=== PATIENT | male | born 1955 | race Caucasian/White ===

== ENCOUNTER 2022-06-15 14:13 | Emergency (ER) | payer OTHER, SELFPAY ==
[2022-06-15 14:55] VITALS: BP 123/70; PULSE 92; RESP 16; TEMP 36.6; O2SAT 99; BMI 23.6
--- NOTE | 2022-06-15 15:10 | CRLHL7_ITS ---
For Patients: As a result of the Century Cures Act, medical imaging exams and procedure reports are released immediately into your electronic medical record. You may view this report before your referring provider. If you have questions, please contact your health care provider. INDICATION: Shortness of breath. TECHNIQUE: CT chest PE was acquired with 95 cc Isovue 370 IV contrast. COMPARISON: CT chest 03/02/2016. FINDINGS: Heart and vasculature: Contrast opacification of the pulmonary arterial tree is adequate. No sign of pulmonary embolism. Mild left atrial enlargement. Mild aneurysmal dilatation of the ascending aorta measuring 4.1 cm. The main pulmonary artery is normal in caliber.Coronary artery and thoracic aorta atherosclerotic calcification. Lungs and pleura: Bilateral paraseptal emphysema. Spiculated 2.0 x 1.8 cm nodule within the anterior right upper lobe abutting the anterior pleural and mediastinal margins. There are scattered linear and spiculated nodular opacities throughout the right lower lobe. Region of scarring in the left lower lobe posterior basal segment. No pleural effusion or pneumothorax. Lymph nodes/mediastinum: No mediastinal, hilar, or axillary adenopathy. Chest wall: No masses. Upper abdomen: No acute or significant findings. Bones: Unremarkable for age. IMPRESSION: No pulmonary embolism. Multiple spiculated nodular opacities, the largest measuring 2 cm in the anterior right upper lobe abutting the anterior mediastinal and pleural margins. These may represent sequela of a prior infectious or inflammatory process; however, malignancy cannot be excluded as they are new since 03/02/2016. Recommend follow-up chest CT in 3 months or PET-CT for further evaluation. Please note that all CT scans at this facility use dose modulation, iterative reconstruction, and/or weight-based dosing when appropriate to reduce radiation dose to as low as reasonably achievable. Dictated by Mihir Scruggs MD @ 06/15/2022 5:23:37 PM (Electronically Signed)
--- NOTE | 2022-06-15 15:10 | CRLHL7_ITS ---
For Patients: As a result of the Century Cures Act, medical imaging exams and procedure reports are released immediately into your electronic medical record. You may view this report before your referring provider. If you have questions, please contact your health care provider. INDICATION: Leg swelling. TECHNIQUE: Ultrasound venous duplex bilateral lower extremity. Compression venous exam was performed using verma-scale, color Doppler, and spectral Doppler analysis. COMPARISON: None. FINDINGS: Deep veins: Sonographic imaging demonstrates the bilateral common femoral, deep femoral, superficial femoral, popliteal, and peroneal veins to be fully compressible with normal color Doppler blood flow. The right posterior tibial vein is incompressible with of definitive flow, suggestive of occlusive thrombus. There is partial compressibility of the left inferior posterior tibial vein, consistent with partially occlusive thrombus. Superficial veins: Greater saphenous vein is fully compressible. No popliteal cyst. IMPRESSION: Thrombus within the bilateral posterior tibial veins, occlusive on the right and partially occlusive on the left. Findings discussed with Dr. Gutierrez at 3:02 p.m. PST on 06/15/2022. Dictated by Mihir Scruggs MD @ 06/15/2022 5:03:09 PM (Electronically Signed)
--- NOTE | 2022-06-15 15:13 | ED_ITS ---
HPI - General Adult General Time Seen by Provider: 15:14 Date Seen: 06/15/22 Chief complaint: Shortness of Breath/Dyspnea Stated complaint: Struggling to breathe, possible blood clot Time Seen by Provider: 06/15/22 14:15 Source: patient Mode of arrival: ambulatory Limitations: no limitations History of Present Illness HPI narrative: Patient is a 67 year white male who works at [employer]. He has had shortness of breath and some leg swelling over the last week. He quit smoking about a year ago, he denies any heart failure, chronic lung disease, or bleeding or clotting problems. He reports he has been somewhat short of breath although his O2 sat today is 99%. He has not had any COVID symptoms, fever, cough, chest pain. He has had no skin rashes. No other specific complaints. He feels more short of breath when he is active, but denies chest pain as mention Related Data Home Medications Medication Instructions Recorded Confirmed No Known Home Medications 06/15/22 06/15/22 Allergies Allergy/AdvReac Type Severity Reaction Status Date / Time No Known Drug Allergies Allergy Verified 06/15/22 14:59 Review of Systems Status of ROS: Reports: 10 or more systems reviewed and unremarkable except as noted in History and below PFSH PFS Social History Smoking Status: Former smoker How often do you have a drink containing alcohol: never AUDIT-C Alcohol total score: 0 Non-prescribed substance use: denies use service: No Exam Narrative: Exam Narrative: Objective: The patient is alert orient x3 He is noncyanotic Talks in even unlabored sentences Vital signs unremarkable HEENT shows no scleral icterus mouth clear no facial asymmetry neck is supple Chest is clear no rales or wheezing Heart rhythm regular 2/6 systolic murmur Abdomen benign soft nontender no passing megaly Extremities show just trace edema around his socks were has a Ms. Mid calf and no palpable venous cords negative Homans sign bilaterally Skin is warm and dry in the periphery Const: Vital Signs, click to edit/add: Vital Signs - 24 hr 06/15/22 14:55 06/15/22 17:00 06/15/22 17:30 Temperature 97.8 F Pulse Rate [Pulse Oximeter] 92 79 83 Respiratory Rate 16 18 Blood Pressure [Ri ght Upper Arm] 123/70 95/61 94/59 L Pulse Oximetry 99 98 99 Oxygen Delivery Me thod Room Air Room Air Room Air 06/15/22 16:30 Temperature Pulse Rate [Pulse Oximeter] 81 Respiratory Rate Blood Pressure [Ri ght Upper Arm] 97/61 Pulse Oximetry 97 Oxygen Delivery Me thod Room Air Course Vital Signs Vital signs: Initial Vital Signs Temperature 97.8 F 06/15/22 14:55 Temperature Source Temporal Artery Scan 06/15/22 14:55 Pulse Rate 92 06/15/22 14:55 Respiratory Rate 16 06/15/22 14:55 Blood Pressure 123/70 06/15/22 14:55 Blood Pressure Mean 87 06/15/22 14:55 Pulse Oximetry 99 06/15/22 14:55 Oxygen Delivery Method 06/15/22 14:55 Vital Signs Temperature 97.8 F 06/15/22 14:55 Pulse Rate 92 06/15/22 14:55 Respiratory Rate 16 06/15/22 14:55 Blood Pressure 123/70 06/15/22 14:55 Pulse Oximetry 99 06/15/22 14:55 Oxygen Delivery Method 06/15/22 14:55 Temperature 97.8 F 06/15/22 14:55 Pulse Rate 83 06/15/22 17:30 Respiratory Rate 18 06/15/22 17:30 Blood Pressure 94/59 L 06/15/22 17:30 Pulse Oximetry 99 06/15/22 17:30 Oxygen Delivery Method 06/15/22 17:30 Medical Decision Making MDM Narrative Medical decision making narrative: Patient has had several-day history of increasing shortness of breath, will check a COVID test, laboratory studies, CT scan of the chest to rule out PE, he has had some lower extremity swelling any if will do a Doppler scan of both lower extremities to rule out DVT and possible PE. Rule out acute coronary syndrome with troponin and EKG Addendum: The patient's EKG by my read shows normal sinus rhythm no acute ST T wave changes. CT scan of the chest shows some right-sided spiculated nodules the maybe prior infection verses early malignancy radiology recommended a repeat CT scan in 3 months of the chest. Patient will be notified of this. There is no evidence of pulmonary embolus. Hemodynamics remain good. Laboratory studies show a low normal sodium 133, total billing bilirubin is 3 direct is elevated at 0.6 AST 51 troponin is negative CRP is 3.4, which could be related to his positive COVID test, he is negative for flu and RSV. Lower extremity Doppler scans show bilateral posterior tibial thrombi right greater than left. Patient will be started on Eliquis 10 mg b.i.d. for 10 days and then 5 mg b.i.d. x1 month. He will need follow up with his regular doctor within the next couple of days. Light activity, recommend off work for a few days have written a note to that effect, and elevate the legs. Return to ED sooner pr oblems or concerns. I am wondering if his COVID has led to the clotting process in his legs, or that simply concomitant infection Lab Data Labs: Lab Results 06/15/22 06/15/22 06/15/22 Range/Units 15:10 15:30 15:30 Sodium 133 L (135-149) mmol/L Potassium 4.5 (3.6-5.1) mmol/L Chloride 101 (96-114) mmol/L Carbon Dioxide 25 (20-32) mmol/L BUN 18 (7-30) mg/dL Creatinine 1.2 (0.5-1.5) mg/dL Estimated Creat Clear 58.58 Estimated GFR 67 ml/min Glucose 100 (60-115) mg/dL Calcium 8.8 (8.4-10.6) mg/dL Total Bilirubin 3.0 H (0.1-1.5) mg/dL Direct Bilirubin 0.6 H (0.0-0.5) mg/dL AST 51 H (12-35) U/L ALT 21 (4-50) U/L Alkaline Phosphatase 117 (40-150) U/L Troponin I < 0.01 L (0.01-0.04) ng/mL C-Reactive Protein 3.4 H (0.5-1.0) mg/dL NT-Pro-B Natriuret Pep 454 H (0-125) PG/mL Total Protein 7.2 (6.0-8.3) g/dL Albumin 4.4 (3.3-5.0) g/dL SARS-CoV-2 (PCR) POSITIVE SARS-CoV-2 A (Negative) Influenza Type A (PCR) Negative PCR FLU A (Negative) Influenza Type B (PCR) Negative PCR FLU B (Negative) RSV (PCR) Negative PCR RSV (Negative) Discharge Plan Discharge Clinical Impression: Mild shortness of breath, COVID-19, Indeterminate pulmonary nodules, DVT of lower extremity, bilateral Patient Disposition: Home w/ Parent or Adult Condition: Stable Additional Instructions: Off work for 2-3 days, elevate legs, Eliquis to take as directed, light activity, recheck with primary care in the next 3-5 days. Recheck the pulmonary nodules noted on your CT scan with a repeat CT scan in 3 months, this can be coordinated through her primary care doctor. Return to ED sooner problems concerns difficulty, such as shortness of breath, chest pain or other concern. Activity Level: Light activity Activity Detail: Off work x3 days Discharge Diet: Regular Prescriptions: No Action No Known Home Medications Follow Up/Referrals: Dean Parisi MD [Primary Care Provider] - Stand Alone Forms: [employer] Info Instructions
[2022-06-15] MEDS: ASPIRIN 81 MG TAB.CHEW 324 MG PO (15:36)
[2022-06-15 15:53] LABS: Chloride* 101 mmol/L (96-114)
[2022-06-15 15:54] LABS: Potassium* 4.5 mmol/L (3.6-5.1); Sodium* 133 mmol/L (135-149)
[2022-06-15 15:55] LABS: Albumin* 4.4 g/dL (3.3-5.0)
[2022-06-15 15:56] LABS: Creatinine* 1.2 mg/dL (0.5-1.5); Est. Creatinine Clearance* 58.58; Estimated Glomerular Filt Rate 67 ml/min
[2022-06-15 15:57] LABS: Blood Urea Nitrogen* 18 mg/dL (7-30); Carbon Dioxide* 25 mmol/L (20-32); Glucose* 100 mg/dL (60-115)
[2022-06-15 15:58] LABS: Alanine Aminotransferase* 21 U/L (4-50); Alkaline Phosphatase* 117 U/L (40-150); Aspartate Amino Transferase* 51 U/L (12-35); Bilirubin Direct* 0.6 mg/dL (0.0-0.5); Calcium* 8.8 mg/dL (8.4-10.6); Total Protein* 7.2 g/dL (6.0-8.3)
[2022-06-15 16:00] LABS: C Reactive Protein* 3.4 mg/dL (0.5-1.0)
[2022-06-15 16:06] LABS: NT Pro B Type NatriureticPept* 454 PG/mL (0-125)
[2022-06-15 16:17] LABS: PCR FLU A Negative PCR FLU A (Negative); PCR FLU B Negative PCR FLU B (Negative); PCR RSV Negative PCR RSV (Negative)
[2022-06-15 16:18] LABS: Troponin I* < 0.01 ng/mL (0.01-0.04)
[2022-06-15 16:20] LABS: SARS PCR* POSITIVE SARS-CoV-2 (Negative)
[2022-06-15 16:30] VITALS: BP 97/61; PULSE 81; O2SAT 97
[2022-06-15 17:00] VITALS: BP 95/61; PULSE 79; O2SAT 98
[2022-06-15 17:30] VITALS: BP 94/59; PULSE 83; RESP 18; O2SAT 99
[2022-06-15] MEDS: APIXABAN 5 MG TABLET 10 MG PO (17:48)
--- OUTSIDE RECORDS SUMMARY | 2022-06-16 14:08 | XMS_ITS | Clinical Summary ---
:1955 External Reference #:CL#[id number] Author Organization [facility] [place] [address] Care Team Providers Name Role Phone Unavailable Primary Care Provider Unavailable Allergies Active Allergy Reactions Severity Noted Date Comments Penicillins 07/22/2008 Medications Medication Sig Dispensed Refills Start Date End Date Status CELEBREX 200 MG CAP take 1 capsule 60 6 03/19/2009 Active (200 mg) by oral route 2 times per day as needed VICODIN 5 MG-500 MG take 1-2 tablets 36 2 01/21/2009 Active TABIndications: Neck by oral route at pain, Pain in joint, bed time as needed shoulder region for pain NEURONTIN 300 MG CAP take 1 capsule 30 3 12/24/2008 Active (300 mg) by oral route qhs prn MEDROL (JARAD) 4 MG TABS per pack 1 pack 0 04/10/2009 Active IN A DOSE PACK PERCOCET 5 MG-325 MG take 1 tablet by 24 0 04/10/2009 Active TAB oral route every 6 hours as needed Active Problems Problem Noted Date 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 10/13/2008 Neck pain 06/05/2008 Pain in joint, shoulder region 06/05/2008 Social History Tobacco Use Types Packs/Day Years Used Date Current Some Day Smoker Smokeless Tobacco: Never Used Comments: quit one yr ago Alcohol Use Standard Drinks/Week Comments No 0 (1 standard drink = 0.6 oz pure alcoho l) Sex Assigned at Date Recorded Not on file Obstetrics History Last Filed Vital Signs Vital Sign Reading Time Taken Comments Blood Pressure 127/81 08/03/2019 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 Pulse 68 08/03/2019 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 Temperature 36.4 ??C (97.6 ??F) 08/03/2019 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 Respiratory Rate 18 08/03/2019 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 Oxygen Saturation 97% 08/03/2019 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 Inhaled Oxygen Concentration - - Weight 78.1 kg (172 lb 1.6 oz) 08/03/2019 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 Height 175.3 cm (5' 9) 08/03/2019 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 Body Mass Index 25.41 08/03/2019 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 Plan of Treatment Health Maintenance Due Date Last Done Comments COVID-19 vaccine series (#1) 1955 Tdap 1967 Depression screening for age 12+ 1968 BMI (ht and wt on same day) for age 18+ 1974 Hepatitis C screening for age 18-79 1974 Tetanus booster 1976 Colonoscopy through age 75 2001 Lipids for age 45-75 2001 Zoster (shingles) series for age 50+ (1 of 2) 2006 Pneumococcal series for age 65+ (1 - PCV) 2021 Influenza for age 65+ 04/21/2022 Results Not on filefrom Last 3 Months Insurance Payer Benefit Plan / Subscriber ID Effective Phone Address T ype Group Dates [employer] [id number]-Pre [phone] [address] COMP [address] [place] [address] PREFERRED ONE PREFERRED ONE [id number] 2018-Prese [address] [place] [address]
== END 2022-06-15 18:03 | disposition home or self-care (01) ==
PROVIDERS: Emergency Provider Family Medicine; PCP Family Medicine
DX: U07.1 COVID-19 (principal); I82.403 Acute embolism and thrombosis of unspecified deep veins of lower extremity, bilateral
CPT/HCPCS: 36415; 71260; 80048; 80076; 83880; 84484; 86140; 87502; 87634; 87635; 93005; 93970; 94761; 99284; 99285; A9270; Q9967

== ENCOUNTER 2022-07-10 17:19 | Inpatient (IN) | payer OTHER, MEDICARE, SELFPAY ==
[2022-07-10] VITALS (20 sets, daily range): BP systolic 89–129; BP diastolic 59–71; PULSE 77–109; RESP 16–20; TEMP 36.6–36.8; O2SAT 90–98; BMI 22.9; BMI 22.0
--- NOTE | 2022-07-10 17:59 | CRLHL7_ITS ---
For Patients: As a result of the Century Cures Act, medical imaging exams and procedure reports are released immediately into your electronic medical record. You may view this report before your referring provider. If you have questions, please contact your health care provider. Indication: Shortness of breath, concern for PE and after loss of consciousness Technique: Contrast enhanced CT of the chest, PE protocol, Isovue 370, 95 milliliters IV Please note that all CT scans at this facility use dose modulation, iterative reconstruction, and/or weight-based dosing when appropriate to reduce radiation dose to as low as reasonably achievable. Comparison: June 15, 2022 Findings: Thyroid, neck base, central airways, esophagus unremarkable. No acute abnormality within the upper abdomen. Low-attenuation renal lesions, some of which appear to be cysts some which are too small to characterize. Normal heart size. No pericardial effusion. Normal course and caliber of the thoracic aorta and the pulmonary arteries. No definite acute pulmonary artery filling defects. Evaluation of the segmental and subsegmental pulmonary arteries is limited. Small filling defect within the right middle lobe (series 4, image 115), unchanged from prior CT from June 15, 2022 and likely chronic. No mediastinal or hilar lymphadenopathy. No axillary lymphadenopathy. No chest wall mass. Somewhat spiculated right upper lobe pulmonary nodule (series 4, image 75) measuring approximately 1.9 x 1.8 centimeters. Similar left lower lobe pleural-based pulmonary nodular/opacity (series 4, image 104). Similar left basilar atelectasis. Similar right perihilar bronchiectasis. Similar paraseptal emphysema. Trace left pleural effusion. No pneumothorax. No acute osseous abnormality. Impression: 1. No evidence of acute pulmonary embolism. 2. Chronic filling defect in a right middle lobe subsegmental pulmonary artery, likely sequela of old pulmonary embolism. 3. Redemonstrated spiculated right upper lobe pulmonary nodule. Recommend further evaluation with PET-CT. Please note that all CT scans at this facility use dose modulation, iterative reconstruction, and/or weight-based dosing when appropriate to reduce radiation dose to as low as reasonably achievable. Dictated by Kiran Burris MD @ 07/10/2022 8:00:46 PM (Electronically Signed)
--- NOTE | 2022-07-10 18:02 | ED_ITS ---
HPI - SOB/Dyspnea General Chief Complaint: Shortness of Breath/Dyspnea Stated Complaint: Trouble Breathing Time Seen by Provider: 07/10/22 17:28 History of Present Illness HPI Narrative: This 67-year-old male comes in reporting shortness of breath and jaundice symptoms. He states that he has fallen 4 times over the past few weeks. He was diagnosed with deep venous thrombosis in his lower extremities bilaterally on June 16, about 3 weeks ago. He has been taking Eliquis since then. He has been taking 2 tablets twice a day yet. This was appropriate for the 1st week but then he was to decrease to 1 tablet twice a day. He does not report any pain. States that he has shortness of breath and does appear jaundiced. He arrives with normal vital signs except his heart rate is slightly tachycardic. He does not report any fevers or upper respiratory infection symptoms. Related Data Previous Rx's Medication Instructions Recorded apixaban 5 mg tablet (Eliquis) 5 mg PO BID #60 tabs 06/21/22 Allergies Allergy/AdvReac Type Severity Reaction Status Date / Time No Known Drug Allergies Allergy Verified 07/10/22 17:49 Review of Systems Status of ROS: Reports: 10 or more systems reviewed and unremarkable except as noted in History and below Narrative: Constitutional: No fevers, no weight gain or loss. Eyes: No discharge. No vision changes. HENT: No congestion, no sore throat, no ear pain. Cardiovascular: No chest pain, no palpitations. Respiratory: Shortness of breath as described above. Gastrointestinal: No abdominal pain, no vomiting, no diarrhea. Genitourinary: No dysuria, no hematuria. Musculoskeletal: Normal range of motion. Skin: No rashes, no pruritis. Jaundice appearance. Neurological: No dizziness, weakness, sensory change, speech change. Endo/Heme/Allergies: No bruising or bleeding. No polydipsia. Pysch: no suicidality, no anxiety, no insomnia. All other systems reviewed and are negative. [facility] Social History Smoking Status: Current every day smoker How often do you have a drink containing alcohol: never AUDIT-C Alcohol total score: 0 Non-prescribed substance use: denies use service: No Exam Narrative: Exam Narrative: Constitutional: Well-developed, well-nourished, no acute distress. HEENT: Normocephalic, atraumatic. Neck: Normal range of motion. Nontender. Supple. Heart: Regular. No murmurs. Normal rate. Intact distal pulses. Lungs: No chest discomfort. No wheezes or rales. Bilateral rhonchi. Abdomen: Normal bowel sounds. Nontender. No rebound tenderness. Genitalia: Deferred. Back: No midline tenderness. Normal range of motion. Extremities: Normal range of motion. No injury. Skin: Intact. No rash. Warm. No erythema or pallor. Neurologic: No altered sensation. No weakness. Alert and oriented. Psychiatric: No suicidality. No anxiety or depression. No insomnia. Nursing notes and vitals signs are reviewed. Const: Vital Signs, click to edit/add: Vital Signs - 24 hr 07/10/22 17:49 Temperature 98 F Pulse Rate [Pulse Oximeter] 96 Respiratory Rate 18 Blood Pressure [Ri ght Upper Arm] 129/64 Pulse Oximetry 98 Oxygen Delivery Me thod Room Air Course Vital Signs Vital signs: Initial Vital Signs Temperature 98 F 07/10/22 17:49 Temperature Source Temporal Artery Scan 07/10/22 17:49 Pulse Rate 96 07/10/22 17:49 Respiratory Rate 18 07/10/22 17:49 Blood Pressure 129/64 07/10/22 17:49 Blood Pressure Mean 85 07/10/22 17:49 Blood Pressure Position Supine 07/10/22 17:49 Pulse Oximetry 98 07/10/22 17:49 Oxygen Delivery Method 07/10/22 17:49 Vital Signs Temperature 98 F 07/10/22 17:49 Pulse Rate 96 07/10/22 17:49 Respiratory Rate 18 07/10/22 17:49 Blood Pressure 129/64 07/10/22 17:49 Pulse Oximetry 98 07/10/22 17:49 Oxygen Delivery Method 07/10/22 17:49 Temperature 98 F 07/10/22 17:49 Pulse Rate 96 07/10/22 17:49 Respiratory Rate 18 07/10/22 17:49 Blood Pressure 129/64 07/10/22 17:49 Pulse Oximetry 98 07/10/22 17:49 Oxygen Delivery Method 07/10/22 17:49 MDM - SOB/Dyspnea MDM Narrative Medical decision making narrative: This patient comes in reporting shortness of breath and weakness. He has been taking a double dose of Eliquis for the past 3 weeks. He appears jaundiced. He does not report any pain. An IV was established and labs were drawn. His hemoglobin is markedly low at 4.9. The most recent comparison value was a year ago when it was around 13. His bilirubin is elevated at around 3. A CT scan of the chest with PE protocol is ordered and completed. There is no sign of pulmonary embolism or acute pulmonary disease. This patient needs a blood yang sfusion. Most likely his symptoms and lab results are a consequence of the dosing of Eliquis that he has been taking. I spoke with the hospitalist machine stone polisher, Dr. Steele, who will arrange for his admission and for blood transfusion. Lab Data Labs: Lab Results 07/10/22 07/10/22 07/10/22 Range/Units 18:15 18:15 18:15 WBC 12.74 H (4.50-11.00) K/uL RBC 1.16 L (4.30-5.90) m/uL Hgb 4.9 L* (13.5-17.5) gm/dL Hct 16.0 L (37.0-53.0) % MCV 138 H (80-100) fL MCH 42 H (26-34) pg MCHC 31 L (32-36) gm/dL RDW Coeff of Loyd 23.2 H (11.5-15.5) % Plt Count 185 (140-440) K/uL Neut % (Auto) 63.5 (42.0-72.0) % Lymph % (Auto) 25.4 (20-44) % [place] % (Auto) 4.9 (0.0-11.0) % Eos % (Auto) 3.5 (0.0-7.0) % Baso % (Auto) 0.5 (0.0-3.0) % Neut # (Auto) 8.10 H (1.7-7.0) K/uL Lymph # (Auto) 3.20 H (0.90-2.90) K/uL [place] # (Auto) 0.60 (0.00-0.90) K/UL Eos # (Auto) 0.40 (0.00-0.50) K/uL Baso # (Auto) 0.10 (0.00-0.30) K/uL Abs Immat Gran (auto) 0.30 (0.00-0.30) K/uL Imm/Tot Granulo (auto) 2.2 % INR 1.01 (0.91-1.10) Sodium 137 (135-149) mmol/L Potassium 4.4 (3.6-5.1) mmol/L Chloride 106 (96-114) mmol/L Carbon Dioxide 27 (20-32) mmol/L BUN 24 (7-30) mg/dL Creatinine 1.2 (0.5-1.5) mg/dL Estimated Creat Clear 60.22 Estimated GFR 67 ml/min Glucose 142 H (60-115) mg/dL Calcium 9.1 (8.4-10.6) mg/dL Total Bilirubin 2.8 H (0.1-1.5) mg/dL Direct Bilirubin 0.6 H (0.0-0.5) mg/dL AST 114 H (12-35) U/L ALT 28 (4-50) U/L Alkaline Phosphatase 70 (40-150) U/L NT-Pro-B Natriuret Pep 130 H (0-125) PG/mL Total Protein 6.7 (6.0-8.3) g/dL Albumin 4.1 (3.3-5.0) g/dL SARS-CoV-2 Ag (Rapid) (Negative) POC Troponin I (0.01-0.04) ng/ml 07/10/22 07/10/22 Range/Units 18:15 19:15 WBC (4.50-11.00) K/uL RBC (4.30-5.90) m/uL Hgb (13.5-17.5) gm/dL Hct (37.0-53.0) % MCV (80-100) fL MCH (26-34) pg MCHC (32-36) gm/dL RDW Coeff of Loyd (11.5-15.5) % Plt Count (140-440) K/uL Neut % (Auto) (42.0-72.0) % Lymph % (Auto) (20-44) % [place] % (Auto) (0.0-11.0) % Eos % (Auto) (0.0-7.0) % Baso % (Auto) (0.0-3.0) % Neut # (Auto) (1.7-7.0) K/uL Lymph # (Auto) (0.90-2.90) K/uL [place] # (Auto) (0.00-0.90) K/UL Eos # (Auto) (0.00-0.50) K/uL Baso # (Auto) (0.00-0.30) K/uL Abs Immat Gran (auto) (0.00-0.30) K/uL Imm/Tot Granulo (auto) % INR (0.91-1.10) Sodium (135-149) mmol/L Potassium (3.6-5.1) mmol/L Chloride (96-114) mmol/L Carbon Dioxide (20-32) mmol/L BUN (7-30) mg/dL Creatinine (0.5-1.5) mg/dL Estimated Creat Clear Estimated GFR ml/min Glucose (60-115) mg/dL Calcium (8.4-10.6) mg/dL Total Bilirubin (0.1-1.5) mg/dL Direct Bilirubin (0.0-0.5) mg/dL AST (12-35) U/L ALT (4-50) U/L Alkaline Phosphatase (40-150) U/L NT-Pro-B Natriuret Pep (0-125) PG/mL Total Protein (6.0-8.3) g/dL Albumin (3.3-5.0) g/dL SARS-CoV-2 Ag (Rapid) Negative (Negative) POC Troponin I 0.00 L (0.01-0.04) ng/ml Imaging Data CT scan - chest: Radiologist's impression: 1. No evidence of acute pulmonary embolism. 2. Chronic filling defect in a right middle lobe subsegmental pulmonary artery, likely sequela of old pulmonary embolism. 3. Redemonstrated spiculated right upper lobe pulmonary nodule. Recommend further evaluation with PET-CT. ECG Data Attestation: I personally reviewed and interpreted this ECG as follows: Interpretation: Normal sinus rhythm. Rate is 99 beats per minute. There are no ST or T-wave abnormalities. Discharge Plan Discharge Clinical Impression: Direct hyperbilirubinemia, DVT (deep venous thrombosis), Anemia Patient Disposition: Admitted As Inpatient Condition: Unchanged Prescriptions: No Action Eliquis 5 mg tablet 5 mg PO BID Qty: 60 1RF Follow Up/Referrals: Dean Parisi MD [Primary Care Provider] -
--- OUTSIDE RECORDS SUMMARY | 2022-07-10 18:18 | XMS_ITS | Clinical Summary ---
:1955 External Reference #:[id number] Author Organization [facility] [place] [address] Care Team Providers Name Role Phone Unavailable [...] Comments Blood Pressure 127/81 08/03/2019 6:46 PM JET INSPECTOR Pulse 68 08/03/2019 6:46 PM JET INSPECTOR Temperature 36.4 ??C (97.6 ??F) 08/03/2019 6:46 PM JET INSPECTOR Respiratory Rate 18 08/03/2019 6:46 PM JET INSPECTOR Oxygen Saturation 97% 08/03/2019 6:46 PM JET INSPECTOR Inhaled Oxygen Concentration - - Weight 78.1 kg (172 lb 1.6 oz) 08/03/2019 6:46 PM JET INSPECTOR Height 175.3 cm (5' 9) 08/03/2019 6:46 PM JET INSPECTOR Body Mass Index 25.41 08/03/2019 6:46 PM JET INSPECTOR Plan of Treatment Health Maintenance Due Date [...] [address] COMP 1 [address] [place] [address] PREFERRED ONE PREFERRED ONE [id number] 2018-Prese [address] [place] [address]
[2022-07-10 18:34] LABS: Basophils Percent Auto 0.5 % (0.0-3.0); Eosinophils Percent Auto 3.5 % (0.0-7.0); Immature Granulocytes Pct Auto 2.2 %; Lymphocytes Percent Auto 25.4 % (20-44); Mean Corpuscular HGB Conc 31 gm/dL (32-36); Mean Corpuscular Hemoglobin 42 pg (26-34); Mean Corpuscular Volume 138 fL (80-100); Monocytes Percent Auto 4.9 % (0.0-11.0); Neutrophils Percent Auto 63.5 % (42.0-72.0); Platelet Count* 185 K/uL (140-440); RDW Coefficient of Variation % 23.2 % (11.5-15.5); Red Blood Count 1.16 m/uL (4.30-5.90); White Blood Count* 12.74 K/uL (4.50-11.00)
[2022-07-10 18:40] LABS: Albumin* 4.1 g/dL (3.3-5.0); Chloride* 106 mmol/L (96-114); Sodium* 137 mmol/L (135-149)
[2022-07-10 18:41] LABS: INR 1.01 (0.91-1.10); Potassium* 4.4 mmol/L (3.6-5.1); Prothrombin Time 13.9 Seconds
[2022-07-10 18:43] LABS: Alanine Aminotransferase* 28 U/L (4-50); Alkaline Phosphatase* 70 U/L (40-150); Aspartate Amino Transferase* 114 U/L (12-35); Bilirubin Direct* 0.6 mg/dL (0.0-0.5); Bilirubin Total* 2.8 mg/dL (0.1-1.5); Blood Urea Nitrogen* 24 mg/dL (7-30); Calcium* 9.1 mg/dL (8.4-10.6); Carbon Dioxide* 27 mmol/L (20-32); Creatinine* 1.2 mg/dL (0.5-1.5); Est. Creatinine Clearance* 60.22; Estimated Glomerular Filt Rate 67 ml/min; Glucose* 142 mg/dL (60-115); Total Protein* 6.7 g/dL (6.0-8.3)
[2022-07-10 18:45] LABS: Hemoglobin* 4.9 gm/dL (13.5-17.5); Slide Review Reflex Yes
--- NOTE | 2022-07-10 18:46 | ED.NURSE ---
hgb 4.9, MD Nguyen updated.
[2022-07-10 18:52] LABS: NT Pro B Type NatriureticPept* 130 PG/mL (0-125)
[2022-07-10 20:06] LABS: SARS Antigen* Negative (Negative)
[2022-07-10 20:29] LABS: Appearance Urine Slightly Cloudy (Clear); Bilirubin Urine Negative (Negative); Blood Urine 3+ (Negative); Color Urine Yellow (Yellow); Glucose Urine Negative (Negative); Ketones Urine Negative (Negative); Leukocyte Esterase Urine Negative (Negative); Nitrite Urine Negative (Negative); Protein Urine 1+ (Negative); Specific Gravity Urine <= 1.005 (1.000-1.030); pH Urine 5.5 (5.0-8.5)
[2022-07-10 20:44] LABS: Bacteria Urine Few
--- NOTE | 2022-07-10 21:08 | CRLHL7_ITS ---
For Patients: As a result of the Century Cures Act, medical imaging exams and procedure reports are released immediately into your electronic medical record. You may view this report before your referring provider. If you have questions, please contact your health care provider. INDICATION: Anemia TECHNIQUE: CT Abdomen and pelvis without i.v. contrast. Coronal and sagittal reformats were obtained. COMPARISON: 07/16/2021 FINDINGS: Liver: A punctate cyst is present in the left lateral segment of the liver. Spleen: Unremarkable. Pancreas: Unremarkable. Gallbladder: Unremarkable. Kidney: Excretion of contrast into the renal collecting systems and ureters arenoted, which limits evaluation for the presence of stones. Bilateral renal cortical cysts are present measuring up to 2.3 cm. Adrenal: Unremarkable. Bowel: Moderate amount of stool is present throughout the colon which may be due to chronic constipation. Fluid-filled dilated small bowel loops are present measuring up to 4.6 cm. The transition point is not well demonstrated. The appendix cannot be identified. Vascular: Moderate diffuse atherosclerotic calcifications of the abdominal aorta and its tributaries are present. Mild ectasia of the aorta is present measuring 2.5 cm. Lymph: Unremarkable. Peritoneum: Unremarkable. No pneumoperitoneum is seen. No significant ascites is noted. Pelvis: The bladder is distended and opacified by excreted contrast. Soft tissue: Unremarkable. Bone: Unremarkable for age. IMPRESSION: 1. Fluid-filled dilated small bowel loops are present measuring up to 4.6 cm. The transition point is not well demonstrated. Findings are suspicious for small bowel obstruction. Dictated by Dario Maharaj MD @ 07/10/2022 10:55:51 PM Please note that all CT scans at this facility use dose modulation, iterative reconstruction, and/or weight-based dosing when appropriate to reduce radiation dose to as low as reasonably achievable. Dictated by: Dario Maharaj MD @ 07/10/2022 22:55:57 (Electronically Signed)
--- NOTE | 2022-07-10 21:22 | P.IMHP_ITS ---
Hospitalist- H&P: HPI History of Present Illness Date Seen: 07/10/22 Chief complaint: Trouble Breathing Narrative: ADMISSION HISTORY AND PHYSICAL - HOSPITALIST Chief Complaint: weakness, passing out, no appetite HPI: 67-year-old with a recent history of bilateral DVTs and COVID. He was seen in our ED the end of May. He had a negative CTA other than a previously documented nodule in his right upper lobe that was meant to be followed up as an outpatient. He had bilateral DVTs that were presumably attributed to his + COVID status. He was not hypoxic. He was not admitted. He was started on Eliquis. He was confused on the directions and was taking twice the dose of Eliquis prescribed. There has been no GI bleeding. His notes that over the last 3 weeks his color has worsened daily. He has fallen 4 times, he feels like he is going to pass out almost every day. His appetite been poor. No diarrhea. No nausea. No vomiting. He missed his 2-year-old granddaughters birthday democrat last weekend and his said that is extremely unusual. He said he just felt too weak to go. He has had intermittent dizziness nearly daily, mild headaches. The only prescription med he is on his Eliquis. He does not doctor much. He has seen Dr. Shell in clinic. I've updated the PFSH, medications and allergies in the [facility] tabs. INVESTIGATIONS: LABS/MICRO/ECG/IMAGING Afebrile, upon arrival to emergency room Blood pressures are running 107-129 systolic Pulse 96-109, sinus Pulse ox mid 90s on room air Weight 70.3 kilos WBC 12.7 Hemoglobin 4.9, MCV 138/MCH 42/RDW 23.2 -previous hemoglobin we have on record is June of 2021 was 13.1 -MCV normal Platelet count 185 INR 1.0 Electrolytes unremarkable. Creatinine 1.2 - last check is 1.0 in 07/11 Glucose 142 Total bilirubin 3.0 down to 2.8 since the end of May AST climbing 51-114 since initial presentation the end may All LFTs were normal in June of 2021 ProBNP has gone from 454-130 in last 3 weeks Troponin undetectable Urine is slightly cloudy, 1+ protein, 3+ blood, 2-5 red blood cells SARs positive end of May, negative antigen tonight CTA of chest 1. No evidence of acute pulmonary embolism. 2. Chronic filling defect in a right middle lobe subsegmental pulmonary artery, likely sequela of old pulmonary embolism. 3. Redemonstrated spiculated right upper lobe pulmonary nodule.1.9 x 1.8 centimeters. Recommend further evaluation with PET-CT. Urine culture pending EKG is unremarkable with normal sinus rhythm, rate 99 He had an exploratory laparotomy with a small-bowel mesenteric biopsy in June of 2021. Diagnosis PRE-OP Diagnosis: 1. Small-bowel Mesenteric swirling on abdominal CT scan with severe abdominal pain concerning for an internal hernia. POST-OP Diagnosis: 1. Edema of distal jejunum and proximal ileum with milky appearance of the mesentery and mesenteric small-bowel. On that CT from June of 2021, the liver, spleen, pancreas and gallbladder were all unremarkable. The imaging showed a swirled appearance of decompressed small bowel loops as well as mesenteric vessels with some edema. An internal hernia or small-bowel volvulus was suspected. He was taken to the OR. This ultimately was negative for malignancy. A 1.8 cm nodular consolidation was noted in the right posterior lung, as was an 8 mm nodule in the left lower lobe - recommendation was for 3 month follow-up chest CT. This was not done until May of 2022. REVIEW OF SYSTEMS: 12-point ROS completed with patient and negative unless otherwise stated in HPI or below. PHYSICAL EXAM: CODE STATUS: FULL CODE CONSTITUTIONAL: looks chronically ill, sallow colored. VITAL SIGNS: see record. HEENT: Normocephalic, atraumatic. PERRL, EOMI, conjunctivae pink, +scleral icterus. Ears and nose externally normal. Pharynx normal. NECK: No JVD. No carotid bruit, no thyromegaly, no adenopathy. CHEST: Clear to auscultation bilaterally HEART: S1 and S2 normal. No harsh murmurs. Edema minimal. Abdomen: no masses; nontender. MUSCULOSKELETAL: No gross joint deformity or swelling. NEURO: Cranial nerves intact. Grossly intact. No asymmetric findings. SKIN: No rashes, petechiae, concerning changes PSYCHIATRIC: Euthymic. ADMIT TO MEDSURG: FLOOR CARE DVT: SCDs GI: PO intake Time spent: 70 minutes examining patient, conferring with family and patient, care staff, developing care plan [facility] Medical History Anemia, macrocytic Surgical History H/O exploratory laparotomy Family History Brother Brain malignancy Social History (Updated 07/10/22 @ 22:06 by Carmen Lowe MD) Narrative: . Mikaela, his , at [phone] is his emergency contact. 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 He is a long-time smoker currently smoking 5 cigarettes a day. Essentially no social alcohol. Two adult children. Two granddaughters. Smoking Status: Current every day smoker How often do you have a drink containing alcohol: never AUDIT-C Alcohol total score: 0 Non-prescribed substance use: denies use service: No Meds Home Medications and Allergies Allergies Allergy/AdvReac Type Severity Reaction Status Date / Time No Known Drug Allergies Allergy Verified 07/10/22 17:49 Exam Const: Vital Signs, click to edit/add: Vital Signs - 24 hr 07/10/22 17:49 07/10/22 20:23 07/10/22 20:24 Temperature 98 F Pulse Rate 109 H 101 H Pulse Rate [Pulse Oximeter] 96 Respiratory Rate 18 Blood Pressure 117/71 Blood Pressure [Ri ght Upper Arm] 129/64 Pulse Oximetry 98 94 96 Oxygen Delivery Me thod Room Air 07/10/22 20:30 07/10/22 20:31 Temperature Pulse Rate 97 96 Pulse Rate [Pulse Oximeter] Respiratory Rate Blood Pressure 107/65 Blood Pressure [Ri ght Upper Arm] Pulse Oximetry 95 95 Oxygen Delivery Me thod Hospitalist - H&P: Result Labs Labs: Short CBC 07/10/22 Range/Units 18:15 WBC 12.74 H (4.50-11.00) K/uL Hgb 4.9 L* (13.5-17.5) gm/dL Hct 16.0 L (37.0-53.0) % Plt Count 185 (140-440) K/uL BMP 07/10/22 18:15 Sodium 137 Potassium 4.4 Chloride 106 Carbon Dioxide 27 BUN 24 Creatinine 1.2 Glucose 142 H Calcium 9.1 Liver Function 07/10/22 Range/Units 18:15 Total Bilirubin 2.8 H (0.1-1.5) mg/dL Direct Bilirubin 0.6 H (0.0-0.5) mg/dL AST 114 H (12-35) U/L ALT 28 (4-50) U/L Alkaline Phosphatase 70 (40-150) U/L Albumin 4.1 (3.3-5.0) g/dL Urine 07/10/22 Range/Units 20:23 Urine Color Yellow (Yellow) Urine Appearance Slightly Cloudy A (Clear) Urine pH 5.5 (5.0-8.5) Ur Specific [place] <= 1.005 (1.000-1.030) Urine Protein 1+ A (Negative) Urine Glucose (UA) Negative (Negative) Assessment and Plan Assessment and plan (1) Anemia, macrocytic: Problem comment: transfuse 1 unit O neg. His antibody screen is positive; [facility] to assist in further units hemolysis workup started peripheral smear sent (MDS, MM?) high suspicion for malignancy Status: Acute (2) DVT (deep venous thrombosis): Problem comment: 06/11 - cause thought to be covid. started eliquis 06/15 and stayed on high dose x 3 weeks; no resultant bleeding noted. Status: Acute (3) COVID-19: Problem comment: dx 06/15/22. not hospitalized. bilateral DVT dx at same time; started on eliquis. antigen neg tonight. Status: Acute
[2022-07-10 21:40] LABS: Lab Add On Test New Spec Needed
[2022-07-10 21:41] LABS: Lactate* 0.6 mmol/L (0.5-1.9)
[2022-07-10 22:00] LABS: Gamma Glutamyl Transpeptidase* 28 U/L (8-55)
[2022-07-10] MEDS: 0.9 % SODIUM CHLORIDE 250 ml IV (22:15)
[2022-07-10 22:16] LABS: Immature Reticulocyte Fraction 38.4 % (2.3-13.4); Reticulocyte Hemoglobin Equivi 36.5 pg (29.0-35.0); Reticulocyte Percent 50.3 % (0.5-2.0); Reticulocytes Absolute 0.44 # (0.03-0.08)
[2022-07-10 22:22] LABS: Slide Review Acceptable Review (Acceptable)
[2022-07-10 22:23] LABS: Total Iron Binding Capacity 286 ug/dL (261-462)
[2022-07-10 22:35] LABS: Lactate Dehydrogenase* 1842 U/L (120-246)
[2022-07-10 22:41] LABS: Iron* 325 ug/dL (49-181)
[2022-07-10 23:05] LABS: Vitamin B12* 284 pg/mL (243-894)
[2022-07-10 23:41] LABS: Percent Iron Saturation 113 % (20-50)
[2022-07-11] VITALS (18 sets, daily range): BP systolic 93–119; BP diastolic 59–74; PULSE 69–94; RESP 14–20; TEMP 36.4–36.8; O2SAT 91–98
[2022-07-11] MEDS: METHYLPREDNISOLONE SOD SUCC 40 MG/ML 60 MG IVP ×2 (00:26→15:25)
[2022-07-11] MEDS: LACTATED RINGERS 1000 ML 1,000 ML 75 ML IV ×2 (00:27→13:21)
[2022-07-11] MEDS: 0.9 % SODIUM CHLORIDE 250 ml IV ×2 (00:52→01:58)
[2022-07-11 01:40] LABS: Hemoglobin* 6.9 gm/dL (13.5-17.5)
--- NOTE | 2022-07-11 06:10 | PC.NURSE ---
Admission note: Pt arrived at the unit on a bed accompanied ED staff. Alert and oriented on arrival. V/S monitored and chartered as per chat and WNL. Order to infuse 4 pint of pack cell blood reviewed and transfusion completed. during the first transfusion pt's Bp started dropping to 90s. Second IV line of 20g inserted and N/S 500ml given through the second line. O2 level was maintained above 90% with 1L oxygen. Pt denied any pain or discomfort. Pt has a steady gait but complained of occasional dizziness when up. A1 offered to and from the bathroom. Admission documentation completed and pt's belongings reviewed with pt and documented.
--- NOTE | 2022-07-11 06:12 | PC.NURSE ---
Pt arrived on unit approx 2200, received 3 units of O+ blood, still waiting on the [facility] to deliver so pt can get his 4th unit, hospital currently does not have anymore O positive blood for pt. Pt states he feels much better after receiving the transfusions, ambulating to br with SBA, denies lightheadedness/dizziness or sob. tachycardia has resolved and pt in NSR. Pt did mention feeling sore behind R calf up by the knee, no redness or swelling noted, will continue to monitor for DVT and updated charge.
[2022-07-11 06:50] LABS: HCO3 VBG 23 mmol/L (21-28); Lactate* 0.9 mmol/L (0.5-1.9); PCO2 VBG 37 mmHG (40-50); PO2 VBG 44.8 mmHG (25-47); pH VBG 7.403 (7.32-7.43)
[2022-07-11 07:00] LABS: Basophils Percent Auto 0.5 % (0.0-3.0); Eosinophils Percent Auto 0.6 % (0.0-7.0); Hematocrit 26.9 % (37.0-53.0); Hemoglobin* 8.9 gm/dL (13.5-17.5); Mean Corpuscular HGB Conc 33 gm/dL (32-36); Mean Corpuscular Hemoglobin 37 pg (26-34); Mean Corpuscular Volume 113 fL (80-100); Neutrophils Percent Auto 71.9 % (42.0-72.0); Platelet Count* 170 K/uL (140-440); RDW Coefficient of Variation % 26.7 % (11.5-15.5); Red Blood Count 2.39 m/uL (4.30-5.90)
[2022-07-11 07:10] LABS: Albumin* 4.3 g/dL (3.3-5.0); Chloride* 108 mmol/L (96-114)
[2022-07-11 07:11] LABS: Potassium* 4.9 mmol/L (3.6-5.1); Sodium* 136 mmol/L (135-149)
[2022-07-11 07:12] LABS: Amylase* 53 U/L (18-89)
[2022-07-11 07:13] LABS: Alkaline Phosphatase* 82 U/L (40-150); Aspartate Amino Transferase* 127 U/L (12-35); Bilirubin Total* 3.1 mg/dL (0.1-1.5); Blood Urea Nitrogen* 19 mg/dL (7-30); Carbon Dioxide* 22 mmol/L (20-32); Creatinine* 0.9 mg/dL (0.5-1.5); Est. Creatinine Clearance* 69.26; Estimated Glomerular Filt Rate 94 ml/min; Gamma Glutamyl Transpeptidase* 30 U/L (8-55); Glucose* 121 mg/dL (60-115); Lipase* 72 U/L (23-300); Total Protein* 6.9 g/dL (6.0-8.3)
[2022-07-11 07:14] LABS: Alanine Aminotransferase* 33 U/L (4-50); Calcium* 9.2 mg/dL (8.4-10.6); Magnesium* 2.3 mg/dL (1.5-2.6); Uric Acid* 7.9 mg/dL (2.2-8.4)
[2022-07-11 07:16] LABS: C Reactive Protein* 2.4 mg/dL (0.5-1.0)
[2022-07-11 07:23] LABS: Troponin I* 0.05 ng/mL (0.01-0.04)
[2022-07-11 07:27] LABS: Procalcitonin* 0.24 ng/mL (<0.50)
[2022-07-11 07:40] LABS: Slide Review Reflex Yes; White Blood Count* 8.25 K/uL (4.50-11.00)
[2022-07-11 07:42] LABS: Slide Review Acceptable Review (Acceptable)
--- NOTE | 2022-07-11 08:47 | REH.OT ---
OT evaluation on hold per MD order, Pt. not medically appropriate for evaluation today.
[2022-07-11 11:25] LABS: Hemoglobin* 9.3 gm/dL (13.5-17.5)
--- NOTE | 2022-07-11 11:49 | PM.IMPN1 ---
Progress Note: A&P Assessment and plan (1) Hemolytic anemia: Problem details: transfused 3 unit O neg. 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 The transition point is not well demonstrated. Findings are suspicious for small bowel obstruction. Status: Acute Assessment and Plan: last BM yesterday, no nausea, no abdominal pain. Have contacted surgery for consultation; anticipated non surgical mgmt; will make npo (3) COVID-19: Problem details: dx 06/15/22. not hospitalized. bilateral DVT dx at same time; started on eliquis. Status: Acute (4) DVT (deep venous thrombosis): Problem details: 06/11 - cause thought to be covid. started eliquis 06/15 and stayed on high dose x 3 weeks; no resultant bleeding noted. Status: Acute Assessment and Plan: eliquis on hold (5) Tobacco dependence: Status: Acute (6) Pulmonary nodule: Problem details: will need outpatient workup Status: Acute Plan Family communication: updated via phone Time Spent With Patient Total time spent: 35 mnutes Subjective Date Seen: 07/11/22 Interval history: [place] to [place] admitted yesterday for hemolytic anemia and possible partial SBO transfused 3 units PRBC overnight hgb this AM 8.9->9.3 denies melena or hematochezia denies sob denies abdominal pain endorses fatigue Exam Narrative: Exam Narrative: Gen: no acute distress HEENT: NCAT EOMI MMM CV: RRR s1 s2 LCTAB Abd: Soft, nt, nd Neuro: Alert, oriented, nonfocal screening exam Psyche; flat affect Skin: pale complexion Const: Vital Signs, click to edit/add: Vital Signs - 24 hr 07/10/22 17:49 07/10/22 20:23 07/10/22 20:24 Temperature 98 F Pulse Rate 109 H 101 H Pulse Rate [Left P ulse Oximeter] Pulse Rate [Pulse Oximeter] 96 Respiratory Rate 18 Blood Pressure 117/71 Blood Pressure [Le ft Arm] Blood Pressure [Ri ght Upper Arm] 129/64 Pulse Oximetry 98 94 96 Oxygen Delivery Me thod Room Air Oxygen Flow Rate 07/10/22 20:30 07/10/22 20:31 07/10/22 18:30 Temperature Pulse Rate 97 96 Pulse Rate [Left P ulse Oximeter] Pulse Rate [Pulse Oximeter] 98 Respiratory Rate 19 Blood Pressure 107/65 Blood Pressure [Le ft Arm] Blood Pressure [Ri ght Upper Arm] 101/59 L Pulse Oximetry 95 95 96 Oxygen Delivery Me thod Room Air Oxygen Flow Rate 07/10/22 20:32 07/10/22 20:45 07/10/22 21:00 Temperature Pulse Rate 97 100 109 H Pulse Rate [Left P ulse Oximeter] Pulse Rate [Pulse Oximeter] Respiratory Rate Blood Pressure Blood Pressure [Le ft Arm] Blood Pressure [Ri ght Upper Arm] Pulse Oximetry 95 94 94 Oxygen Delivery Me thod Oxygen Flow Rate 07/10/22 21:01 07/10/22 21:15 07/10/22 19:00 Temperature Pulse Rate 104 H 106 H Pulse Rate [Left P ulse Oximeter] Pulse Rate [Pulse Oximeter] 92 Respiratory Rate 18 Blood Pressure 105/61 Blood Pressure [Le ft Arm] Blood Pressure [Ri ght Upper Arm] 94/59 L Pulse Oximetry 93 95 95 Oxygen Delivery Me thod Room Air Oxygen Flow Rate 07/10/22 22:17 07/10/22 22:00 07/10/22 22:00 Temperature 98.2 F 98.2 F Pulse Rate 100 Pulse Rate [Left P ulse Oximeter] 108 H Pulse Rate [Pulse Oximeter] Respiratory Rate 20 20 20 Blood Pressure 102/64 Blood Pressure [Le ft Arm] 103/63 Blood Pressure [Ri ght Upper Arm] Pulse Oximetry 91 91 Oxygen Delivery Me thod Room Air Room Air Oxygen Flow Rate 07/10/22 22:34 07/10/22 23:09 07/10/22 23:19 Temperature 98.3 F 98 F 98.3 F Pulse Rate 99 90 85 Pulse Rate [Left P ulse Oximeter] Pulse Rate [Pulse Oximeter] Respiratory Rate 16 18 18 Blood Pressure 89/65 L 92/66 91/59 L Blood Pressure [Le ft Arm] Blood Pressure [Ri ght Upper Arm] Pulse Oximetry 97 Oxygen Delivery Me thod Oxygen Flow Rate 07/10/22 23:57 07/11/22 00:11 07/11/22 00:26 Temperature 98 F 98.2 F 98.2 F Pulse Rate 88 94 88 Pulse Rate [Left P ulse Oximeter] Pulse Rate [Pulse Oximeter] Respiratory Rate 18 20 18 Blood Pressure 92/60 96/60 97/61 Blood Pressure [Le ft Arm] Blood Pressure [Ri ght Upper Arm] Pulse Oximetry 98 Oxygen Delivery Me thod Oxygen Flow Rate 07/11/22 00:32 07/11/22 00:59 07/10/22 22:07 Temperature 98.3 F 98.1 F Pulse Rate 75 Pulse Rate [Left P ulse Oximeter] Pulse Rate [Pulse Oximeter] Respiratory Rate 16 20 Blood Pressure 97/61 93/59 L Blood Pressure [Le ft Arm] Blood Pressure [Ri ght Upper Arm] Pulse Oximetry 90 Oxygen Delivery Me thod Oxygen Flow Rate 07/10/22 22:07 07/10/22 23:00 07/10/22 23:00 Temperature 98.2 F Pulse Rate 77 Pulse Rate [Left P ulse Oximeter] Pulse Rate [Pulse Oximeter] Respiratory Rate 18 Blood Pressure Blood Pressure [Le ft Arm] 93/59 L Blood Pressure [Ri ght Upper Arm] Pulse Oximetry 96 96 Oxygen Delivery Me thod Nasal Cannula Nasal Cannula Oxygen Flow Rate 1 1 07/11/22 01:49 07/11/22 01:58 07/11/22 02:16 Temperature 98.2 F 98.3 F 98.2 F Pulse Rate 85 83 78 Pulse Rate [Left P ulse Oximeter] Pulse Rate [Pulse Oximeter] Respiratory Rate 16 18 16 Blood Pressure 98/61 99/65 101/63 Blood Pressure [Le ft Arm] Blood Pressure [Ri ght Upper Arm] Pulse Oximetry Oxygen Delivery Me thod Oxygen Flow Rate 07/11/22 02:47 07/11/22 03:03 07/11/22 03:48 Temperature 98.3 F 98.3 F Pulse Rate 76 78 78 Pulse Rate [Left P ulse Oximeter] Pulse Rate [Pulse Oximeter] Respiratory Rate 18 20 18 Blood Pressure 102/62 102/62 113/74 Blood Pressure [Le ft Arm] Blood Pressure [Ri ght Upper Arm] Pulse Oximetry Oxygen Delivery Me thod Oxygen Flow Rate 07/11/22 03:00 07/11/22 07:43 07/11/22 07:00 Temperature 98.3 F 97.5 F L Pulse Rate 73 Pulse Rate [Left P ulse Oximeter] 78 73 Pulse Rate [Pulse Oximeter] Respiratory Rate 18 18 Blood Pressure Blood Pressure [Le ft Arm] 113/74 119/72 Blood Pressure [Ri ght Upper Arm] Pulse Oximetry 98 97 Oxygen Delivery Me thod Nasal Cannula Nasal Cannula Oxygen Flow Rate 1 1 07/11/22 11:00 Temperature 97.5 F L Pulse Rate Pulse Rate [Left P ulse Oximeter] 69 Pulse Rate [Pulse Oximeter] Respiratory Rate 14 Blood Pressure Blood Pressure [Le ft Arm] 113/69 Blood Pressure [Ri ght Upper Arm] Pulse Oximetry 96 Oxygen Delivery Me thod Nasal Cannula Oxygen Flow Rate 1 Labs Labs: Laboratory Results - last 24 hr 07/10/22 07/10/22 07/10/22 18:15 18:15 18:15 WBC 12.74 H RBC 1.16 L Hgb 4.9 L* Hct 16.0 L MCV 138 H MCH 42 H MCHC 31 L RDW Coeff of Loyd 23.2 H Plt Count 185 Neut % (Auto) 63.5 Lymph % (Auto) 25.4 [place] % (Auto) 4.9 Eos % (Auto) 3.5 Baso % (Auto) 0.5 Neut # (Auto) 8.10 H Lymph # (Auto) 3.20 H [place] # (Auto) 0.60 Eos # (Auto) 0.40 Baso # (Auto) 0.10 Abs Immat Gran (auto) 0.30 Imm/Tot Granulo (auto) 2.2 Diff Slide Review Acceptable Review Absolute Retic 0.44 H Percent Retic 50.3 H Immature Retic Fraction 38.4 H Retic Hgb Equivalent 36.5 H INR 1.01 VBG pH VBG pCO2 VBG pO2 VBG HCO3 Sodium 137 Potassium 4.4 Chloride 106 Carbon Dioxide 27 BUN 24 Creatinine 1.2 Estimated Creat Clear 60.22 Estimated GFR 67 Glucose 142 H Lactate Uric Acid Calcium 9.1 Ionized Calcium Carlos Magnesium Iron TIBC % Saturation Ferritin Total Bilirubin 2.8 H Direct Bilirubin 0.6 H GGT AST 114 H ALT 28 Alkaline Phosphatase 70 Lactate Dehydrogenase 1842 H Troponin I C-Reactive Protein NT-Pro-B Natriuret Pep 130 H Total Protein 6.7 Albumin 4.1 Amylase Lipase Vitamin B12 284 Procalcitonin Urine Color Urine Appearance Urine pH Ur Specific [place] Urine Protein Urine Glucose (UA) Urine Ketones Urine Blood Urine Nitrite Urine Bilirubin Urine Urobilinogen Ur Leukocyte Esterase Urine RBC Urine WBC Ur Squamous Epith Cells Urine Bacteria SARS-CoV-2 Ag (Rapid) POC Troponin I Direct Antiglob Test Crossmatch (AHG) 07/10/22 07/10/22 07/10/22 18:15 19:15 19:43 WBC RBC Hgb Hct MCV MCH MCHC RDW Coeff of [place]oyd Plt Count Neut % (Auto) Lymph % (Auto) [place] % (Auto) Eos % (Auto) Baso % (Auto) Neut # (Auto) Lymph # (Auto) [place] # (Auto) Eos # (Auto) Baso # (Auto) Abs Immat Gran (auto) Imm/Tot Granulo (auto) Diff Slide Review Absolute Retic Percent Retic Immature Retic Fraction Retic Hgb Equivalent INR VBG pH VBG pCO2 VBG pO2 VBG HCO3 Sodium Potassium Chloride Carbon Dioxide BUN Creatinine Estimated Creat Clear Estimated GFR Glucose Lactate Uric Acid Calcium Ionized Calcium Carlos Magnesium Iron TIBC % Saturation Ferritin Total Bilirubin Direct Bilirubin GGT AST ALT Alkaline Phosphatase Lactate Dehydrogenase Troponin I C-Reactive Protein NT-Pro-B Natriuret Pep Total Protein Albumin Amylase Lipase Vitamin B12 Procalcitonin Urine Color Urine Appearance Urine pH Ur Specific [place] Urine Protein Urine Glucose (UA) Urine Ketones Urine Blood Urine Nitrite Urine Bilirubin Urine Urobilinogen Ur Leukocyte Esterase Urine RBC Urine WBC Ur Squamous Epith Cells Urine Bacteria SARS-CoV-2 Ag (Rapid) Negative POC Troponin I 0.00 L Direct Antiglob Test Crossmatch (G) See Detail 07/10/22 07/10/22 07/10/22 19:43 19:43 20:23 WBC RBC Hgb Hct MCV MCH MCHC RDW Coeff of Loyd Plt Count Neut % (Auto) Lymph % (Auto) [place] % (Auto) Eos % (Auto) Baso % (Auto) Neut # (Auto) Lymph # (Auto) [place] # (Auto) Eos # (Auto) Baso # (Auto) Abs Immat Gran (auto) Imm/Tot Granulo (auto) Diff Slide Review Absolute Retic Percent Retic Immature Retic Fraction Retic Hgb Equivalent INR VBG pH VBG pCO2 VBG pO2 VBG HCO3 Sodium Potassium Chloride Carbon Dioxide BUN Creatinine Estimated Creat Clear Estimated GFR Glucose Lactate Uric Acid Calcium Ionized Calcium [place] Magnesium Iron 325 H TIBC 286 % Saturation 113 H Ferritin Total Bilirubin Direct Bilirubin GGT AST ALT Alkaline Phosphatase Lactate Dehydrogenase Troponin I C-Reactive Protein NT-Pro-B Natriuret Pep Total Protein Albumin Amylase Lipase Vitamin B12 Procalcitonin Urine Color Yellow Urine Appearance Slightly Cloudy A Urine pH 5.5 Ur Specific [place] <= 1.005 Urine Protein 1+ A Urine Glucose (UA) Negative Urine Ketones Negative Urine Blood 3+ A Urine Nitrite Negative Urine Bilirubin Negative Urine Urobilinogen 2.0 A Ur Leukocyte Esterase Negative Urine RBC 2-5 A Urine WBC 2-5 Ur Squamous Epith Cells None Urine Bacteria Few A SARS-CoV-2 Ag (Rapid) POC Troponin I Direct Antiglob Test POSITIVE Crossmatch ([facility]) 07/10/22 07/10/22 07/11/22 21:35 21:35 01:35 WBC RBC Hgb 6.9 L* Hct MCV MCH MCHC RDW Coeff of Loyd Plt Count Neut % (Auto) Lymph % (Auto) [place] % (Auto) Eos % (Auto) Baso % (Auto) Neut # (Auto) Lymph # (Auto) [place] # (Auto) Eos # (Auto) Baso # (Auto) Abs Immat Gran (auto) Imm/Tot Granulo (auto) Diff Slide Review Absolute Retic Percent Retic Immature Retic Fraction Retic Hgb Equivalent INR VBG pH VBG pCO2 VBG pO2 VBG HCO3 Sodium Potassium Chloride Carbon Dioxide BUN Creatinine Estimated Creat Clear Estimated GFR Glucose Lactate 0.6 Uric Acid Calcium Ionized Calcium Carlos Magnesium Iron TIBC % Saturation Ferritin Total Bilirubin Direct Bilirubin GGT 28 AST ALT Alkaline Phosphatase Lactate Dehydrogenase Troponin I C-Reactive Protein NT-Pro-B Natriuret Pep Total Protein Albumin Amylase Lipase Vitamin B12 Procalcitonin Urine Color Urine Appearance Urine pH Ur Specific [place] Urine Protein Urine Glucose (UA) Urine Ketones Urine Blood Urine Nitrite Urine Bilirubin Urine Urobilinogen Ur Leukocyte Esterase Urine RBC Urine WBC Ur Squamous Epith Cells Urine Bacteria SARS-CoV-2 Ag (Rapid) POC Troponin I Direct Antiglob Test Crossmatch ([facility]) 07/11/22 07/11/22 07/11/22 06:28 06:28 06:28 WBC 8.25 RBC 2.39 L Hgb 8.9 L Hct 26.9 L MCV 113 H MCH 37 H MCHC 33 RDW Coeff of Loyd 26.7 H Plt Count 170 Neut % (Auto) 71.9 Lymph % (Auto) 23.0 [place] % (Auto) 2.0 Eos % (Auto) 0.6 Baso % (Auto) 0.5 Neut # (Auto) 5.90 Lymph # (Auto) 1.90 [place] # (Auto) 0.20 Eos # (Auto) 0.00 Baso # (Auto) 0.00 Abs Immat Gran (auto) 0.20 Imm/Tot Granulo (auto) 2.0 Diff Slide Review Acceptable Review Absolute Retic Percent Retic Immature Retic Fraction Retic Hgb Equivalent INR VBG pH 7.403 VBG pCO2 37 L VBG pO2 44.8 VBG HCO3 23 Sodium 136 Potassium 4.9 Chloride 108 Carbon Dioxide 22 BUN 19 Creatinine 0.9 Estimated Creat Clear 69.26 Estimated GFR 94 Glucose 121 H Lactate 0.9 Uric Acid 7.9 Calcium 9.2 Ionized Calcium Carlos 1.20 Magnesium 2.3 Iron TIBC % Saturation Ferritin Total Bilirubin 3.1 H Direct Bilirubin GGT 30 AST 127 H ALT 33 Alkaline Phosphatase 82 Lactate Dehydrogenase Troponin I 0.05 H C-Reactive Protein 2.4 H NT-Pro-B Natriuret Pep Total Protein 6.9 Albumin 4.3 Amylase 53 Lipase 72 Vitamin B12 Procalcitonin 0.24 Urine Color Urine Appearance Urine pH Ur Specific [place] Urine Protein Urine Glucose (UA) Urine Ketones Urine Blood Urine Nitrite Urine Bilirubin Urine Urobilinogen Ur Leukocyte Esterase Urine RBC Urine WBC Ur Squamous Epith Cells Urine Bacteria SARS-CoV-2 Ag (Rapid) POC Troponin I Direct Antiglob Test Crossmatch ([facility]) 07/11/22 07/11/22 06:28 11:08 WBC RBC Hgb 9.3 L Hct MCV MCH MCHC RDW Coeff of Loyd Plt Count Neut % (Auto) Lymph % (Auto) [place] % (Auto) Eos % (Auto) Baso % (Auto) Neut # (Auto) Lymph # (Auto) [place] # (Auto) Eos # (Auto) Baso # (Auto) Abs Immat Gran (auto) Imm/Tot Granulo (auto) Diff Slide Review Absolute Retic Percent Retic Immature Retic Fraction Retic Hgb Equivalent INR VBG pH VBG pCO2 VBG pO2 VBG HCO3 Sodium Potassium Chloride Carbon Dioxide BUN Creatinine Estimated Creat Clear Estimated GFR Glucose Lactate Uric Acid Calcium Ionized Calcium Carlos Magnesium Iron TIBC % Saturation Ferritin 473.0 H Total Bilirubin Direct Bilirubin GGT AST ALT Alkaline Phosphatase Lactate Dehydrogenase Troponin I C-Reactive Protein NT-Pro-B Natriuret Pep Total Protein Albumin Amylase Lipase Vitamin B12 Procalcitonin Urine Color Urine Appearance Urine pH Ur Specific [place] Urine Protein Urine Glucose (UA) Urine Ketones Urine Blood Urine Nitrite Urine Bilirubin Urine Urobilinogen Ur Leukocyte Esterase Urine RBC Urine WBC Ur Squamous Epith Cells Urine Bacteria SARS-CoV-2 Ag (Rapid) POC Troponin I Direct Antiglob Test Crossmatch ([facility])
--- NOTE | 2022-07-11 18:33 | PC.NURSE ---
PATIENT PLEASANT AND COOPERATIVE, ALERT AND ORIENTED, UP SBA DECLINING DIZZINESS AND LIGHTHEADEDNESS, NO CP AND DECLINING SOB, UP IN HALLWAYS TOLERATING WELL, DECLINING PAIN, PASSING GAS, TOLERATING REGULAR DIET NO NAUSEA OR VOMITING, NO BM THIS SHIFT, TELE SHOWING NSR, UPDATED AT BEDSIDE VERY SUPPORTIVE.
[2022-07-11 18:45] LABS: Troponin I* 0.05 ng/mL (0.01-0.04)
[2022-07-11 19:20] LABS: Hemoglobin* 8.8 gm/dL (13.5-17.5)
[2022-07-11] MEDS: SODIUM CHLORIDE 0.9 % (FLUSH) 10 ML SYRINGE 5 ML IVF (20:46)
--- NOTE | 2022-07-12 01:37 | PM.IMPN1 ---
Subjective Date Seen: 07/12/22 Interval history: Babatunde Cavazosist Cross Cover Note eHospitalist was contacted by nursing staff with concern of request for doc to the doctor discussion for transfer of patient. Case discussed with on-call hospitalist at [facility]. Details of the chart reviewed with the provider. Patient has been accepted for further work-up of possible hemolytic anemia. Patient will be transferred during the daytime. Thank you for including Babatunde Ruvalcaba in the patients care. This service is available for further assistance as requested by your care team by calling [phone]. Exam Const: Vital Signs, click to edit/add: Vital Signs - 24 hr 07/11/22 01:49 07/11/22 01:58 07/11/22 02:16 Temperature 98.2 F 98.3 F 98.2 F Pulse Rate 85 83 78 Pulse Rate [Left P ulse Oximeter] Respiratory Rate 16 18 16 Blood Pressure 98/61 99/65 101/63 Blood Pressure [Le ft Arm] Pulse Oximetry Oxygen Delivery Me thod Oxygen Flow Rate 07/11/22 02:47 07/11/22 03:03 07/11/22 03:48 Temperature 98.3 F 98.3 F Pulse Rate 76 78 78 Pulse Rate [Left P ulse Oximeter] Respiratory Rate 18 20 18 Blood Pressure 102/62 102/62 113/74 Blood Pressure [Le ft Arm] Pulse Oximetry Oxygen Delivery Me thod Oxygen Flow Rate 07/11/22 03:00 07/11/22 07:43 07/11/22 07:00 Temperature 98.3 F 97.5 F L Pulse Rate 73 Pulse Rate [Left P ulse Oximeter] 78 73 Respiratory Rate 18 18 Blood Pressure Blood Pressure [Le ft Arm] 113/74 119/72 Pulse Oximetry 98 97 Oxygen Delivery Me thod Nasal Cannula Nasal Cannula Oxygen Flow Rate 1 1 07/11/22 11:00 07/11/22 15:00 07/11/22 15:49 Temperature 97.5 F L 98.1 F Pulse Rate 84 Pulse Rate [Left P ulse Oximeter] 69 84 Respiratory Rate 14 16 Blood Pressure Blood Pressure [Le ft Arm] 113/69 114/66 Pulse Oximetry 96 95 Oxygen Delivery Me thod Nasal Cannula Room Air Oxygen Flow Rate 1 07/11/22 19:47 07/11/22 22:16 Temperature 97.9 F Pulse Rate Pulse Rate [Left P ulse Oximeter] 84 Respiratory Rate 16 Blood Pressure Blood Pressure [Le ft Arm] 107/65 Pulse Oximetry 95 91 Oxygen Delivery Me thod Room Air Oxygen Flow Rate Labs Labs: Laboratory Results - last 24 hr 07/10/22 07/11/22 07/11/22 19:43 01:35 06:28 WBC 8.25 RBC 2.39 L Hgb 6.9 L* 8.9 L Hct 26.9 L MCV 113 H MCH 37 H MCHC 33 RDW Coeff of [place] 26.7 H Plt Count 170 Neut % (Auto) 71.9 Lymph % (Auto) 23.0 [place] % (Auto) 2.0 Eos % (Auto) 0.6 Baso % (Auto) 0.5 Neut # (Auto) 5.90 Lymph # (Auto) 1.90 [place] # (Auto) 0.20 Eos # (Auto) 0.00 Baso # (Auto) 0.00 Abs Immat Gran (auto) 0.20 Imm/Tot Granulo (auto) 2.0 Diff Slide Review Acceptable Review VBG pH VBG pCO2 VBG pO2 VBG HCO3 Sodium Potassium Chloride Carbon Dioxide BUN Creatinine Estimated Creat Clear Estimated GFR Glucose Lactate Uric Acid Calcium Ionized Calcium Carlos Magnesium Ferritin Total Bilirubin GGT AST ALT Alkaline Phosphatase Troponin I C-Reactive Protein Total Protein Albumin Amylase Lipase Procalcitonin Blood Type A Negative Antibody Screen POSITIVE Antibody Identification Anti-e Crossmatch (AHG) See Detail 07/11/22 07/11/22 07/11/22 06:28 06:28 06:28 WBC RBC Hgb Hct MCV MCH MCHC RDW Coeff of Loyd Plt Count Neut % (Auto) Lymph % (Auto) [place] % (Auto) Eos % (Auto) Baso % (Auto) Neut # (Auto) Lymph # (Auto) [place] # (Auto) Eos # (Auto) Baso # (Auto) Abs Immat Gran (auto) Imm/Tot Granulo (auto) Diff Slide Review VBG pH 7.403 VBG pCO2 37 L VBG pO2 44.8 VBG HCO3 23 Sodium 136 Potassium 4.9 Chloride 108 Carbon Dioxide 22 BUN 19 Creatinine 0.9 Estimated Creat Clear 69.26 Estimated GFR 94 Glucose 121 H Lactate 0.9 Uric Acid 7.9 Calcium 9.2 Ionized Calcium Carlos 1.20 Magnesium 2.3 Ferritin 473.0 H Total Bilirubin 3.1 H GGT 30 AST 127 H ALT 33 Alkaline Phosphatase 82 Troponin I 0.05 H C-Reactive Protein 2.4 H Total Protein 6.9 Albumin 4.3 Amylase 53 Lipase 72 Procalcitonin 0.24 Blood Type Antibody Screen Antibody Identification Crossmatch ([facility]) 07/11/22 07/11/22 07/11/22 11:08 18:01 19:17 WBC RBC Hgb 9.3 L 8.8 L Hct MCV MCH MCHC RDW Coeff of Loyd Plt Count Neut % (Auto) Lymph % (Auto) [place] % (Auto) Eos % (Auto) Baso % (Auto) Neut # (Auto) Lymph # (Auto) [place] # (Auto) Eos # (Auto) Baso # (Auto) Abs Immat Gran (auto) Imm/Tot Granulo (auto) Diff Slide Review VBG pH VBG pCO2 VBG pO2 VBG HCO3 Sodium Potassium Chloride Carbon Dioxide BUN Creatinine Estimated Creat Clear Estimated GFR Glucose Lactate Uric Acid Calcium Ionized Calcium Carlos Magnesium Ferritin Total Bilirubin GGT AST ALT Alkaline Phosphatase Troponin I 0.05 H C-Reactive Protein Total Protein Albumin Amylase Lipase Procalcitonin Blood Type Antibody Screen Antibody Identification Crossmatch ([facility])
[2022-07-12 02:09] LABS: Hemoglobin* 7.9 gm/dL (13.5-17.5)
[2022-07-12 02:13] VITALS: BP 102/62; PULSE 72; RESP 16; TEMP 36.6; O2SAT 93
--- NOTE | 2022-07-12 03:29 | PC.NURSE ---
: Pt recent hgb at 020 was 7.9 down from 8.8 at 1999, awaiting next draw as md wants transfusion if hgb <7. Pt resting well, states his weakess improve, up to br IND, denies s&s coming back. VSS on RA. Awaiting transfer to [facility] as patient is number 2 on the waitlist.
[2022-07-12 07:00] VITALS: BP 112/88; PULSE 83; RESP 16; TEMP 36.7; O2SAT 96
[2022-07-12 07:17] LABS: Ionized Calcium* 1.21 mmol/L (1.11-1.30)
[2022-07-12 07:19] LABS: Hemoglobin* 8.1 gm/dL (13.5-17.5)
[2022-07-12 07:27] VITALS: PULSE 69
[2022-07-12 07:42] LABS: Chloride* 108 mmol/L (96-114); Sodium* 137 mmol/L (135-149)
[2022-07-12 07:43] LABS: Potassium* 4.7 mmol/L (3.6-5.1)
[2022-07-12 07:45] LABS: Aspartate Amino Transferase* 120 U/L (12-35); Bilirubin Total* 3.1 mg/dL (0.1-1.5); Carbon Dioxide* 27 mmol/L (20-32); Est. Creatinine Clearance* 68.57; Estimated Glomerular Filt Rate 83 ml/min; Total Protein* 6.6 g/dL (6.0-8.3)
[2022-07-12 07:46] LABS: Alanine Aminotransferase* 35 U/L (4-50); Alkaline Phosphatase* 72 U/L (40-150); Blood Urea Nitrogen* 23 mg/dL (7-30); Calcium* 8.9 mg/dL (8.4-10.6); Glucose* 88 mg/dL (60-115); Magnesium* 2.3 mg/dL (1.5-2.6); Phosphorus* 3.6 mg/dL (2.5-4.5)
[2022-07-12 07:48] LABS: C Reactive Protein* 2.7 mg/dL (0.5-1.0)
[2022-07-12 07:53] LABS: NT Pro B Type NatriureticPept* 530 PG/mL (0-125)
[2022-07-12 07:56] LABS: Troponin I* 0.05 ng/mL (0.01-0.04)
--- NOTE | 2022-07-12 08:26 | REH.OT ---
OT order cancelled. Pt. to be transferred to [facility] today.
[2022-07-12] MEDS: predniSONE 20 MG TABLET 70 MG PO (08:28)
[2022-07-12] MEDS: SODIUM CHLORIDE 0.9 % (FLUSH) 10 ML SYRINGE 5 ML IVF (08:28)
--- NOTE | 2022-07-12 10:15 | CRLHL7_ITS ---
For Patients: As a result of the Century Cures Act, medical imaging exams and procedure reports are released immediately into your electronic medical record. You may view this report before your referring provider. If you have questions, please contact your health care provider. INDICATION: hx DVT bilat PTVs 06/15/22. on Eliquis, right calf pain COMPARISON: None. TECHNIQUE: A compression venous ultrasound exam was performed of the right lower extremity using verma-scale imaging, color Doppler and spectral Doppler analysis. FINDINGS: Sonographic imaging of the right lower extremity demonstrates normal compressibility and color Doppler venous blood flow within the common femoral vein, deep femoral vein, and the proximal greater saphenous vein. Within the thigh, the femoral vein is patent and compressible. At a lower level, the popliteal veins also show normal compressibility and color Doppler venous blood flow. Partially compressible posterior tibial vein noted. Hypoechoic noncompressible clot is located within the gastrocnemius vein in the [id number] absent Doppler flow within this vein. Right calf. Limited imaging of the contralateral groin demonstrates a normal spectral waveform and color Doppler venous blood flow within the left common femoral vein. IMPRESSION: Hypoechoic partially compressible deep venous clot within the right posterior tibial vein. Hypoechoic noncompressible clot throughout the gastrocnemius vein within the right calf. Dictated by London Hirsch MD @ 07/12/2022 11:40:28 AM (Electronically Signed)
[2022-07-12 11:00] VITALS: BP 129/66; PULSE 84; RESP 16; TEMP 36.7; O2SAT 95
--- NOTE | 2022-07-12 11:00 | P.IMPN_ITS ---
Progress Note: A&P Assessment and plan (1) Hemolytic anemia: Problem details: On admission, transfused 3 unit O neg. Antibody screen is +; [place] will assist in obtaining further blood if needed. Elevated lactate dehydrogenase, 1842 with elevated retic count, +LAURA. Recent COVID infection, possibly AIHA. Peripheral smear pending, high suspicion for malignancy. Needs higher level of care facility with Hematology support. Status: Acute Assessment and Plan: - repeat HGb this morning 8.1 (2) SBO (small bowel obstruction): Problem details: CT AP on 07/10 exhibited fluid-filled dilated small bowel loops, measuring up to 4.6 cm. Transition point not well demonstrated, findings suspicious for SBO. Status: Acute Assessment and Plan: - patient asymptomatic, was NPO hospital day 1, began passing flatus and diet has been advanced. Tolerated breakfast this mroning with no issues. (3) COVID-19: Problem details: 06/15/22, not hospitalized. Bilateral DVT dx at same time; Eliquis initiated. Status: Acute (4) DVT (deep venous thrombosis): Problem details: Diagnosed 05/2022, presumably 2/2 COVID. Started eliquis 06/15 and stayed on high dose x 3 weeks; no resultant bleeding noted. Status: Acute (5) Tobacco dependence: Status: Acute (6) Pulmonary nodule: Problem details: Outpatient workup Status: Acute (7) Right calf pain: Status: Acute Assessment and Plan: - acute onset, will repeat LE venous doppler to assess. Currently anticoagulated on Eliquis (was actually inappropriately high dose prior to admission) Plan - per above - transfer to [facility] today when bed available Time Spent With Patient Total time spent: 35 Subjective Date Seen: 07/12/22 Interval history: Patient has right calf pain this morning, no other concerns for hospitalist team. He has been accepted [facility] for transfer, is currently high on their waiting list. Exam Narrative: Exam Narrative: GEN: Alert and oriented, answering questions appropriately and speaking in full sentences HEENT: Normal external ears, EOMIs bilaterally, mild scleral icterus noted CV: RRR, No concerning murmurs, rubs, or gallops R: LCTA bilaterally without concerning wheezing, rales, or rhonchi Ext: No concerning edema, mild ttp over R calf without edema or erythema Skin: No concerning skin lesions or rashes on exposed skin Neuro: Nonfocal Psych: Appropriate Const: Vital Signs, click to edit/add: Vital Signs - 24 hr 07/11/22 15:00 07/11/22 15:49 07/11/22 19:47 Temperature 98.1 F 97.9 F Pulse Rate 84 Pulse Rate [Left P ulse Oximeter] 84 84 Respiratory Rate 16 16 Blood Pressure [Le ft Arm] 114/66 107/65 Pulse Oximetry 95 95 Oxygen Delivery Me thod Room Air Room Air 07/11/22 22:16 07/12/22 02:13 07/12/22 07:27 Temperature 98 F Pulse Rate 69 Pulse Rate [Left P ulse Oximeter] 72 Respiratory Rate 16 Blood Pressure [Le ft Arm] 102/62 Pulse Oximetry 91 93 Oxygen Delivery Me thod Room Air 07/12/22 07:00 Temperature 98.1 F Pulse Rate Pulse Rate [Left P ulse Oximeter] 83 Respiratory Rate 16 Blood Pressure [Le ft Arm] 112/88 Pulse Oximetry 83 L Oxygen Delivery Me thod Room Air Labs Labs: Laboratory Results - last 24 hr 07/10/22 07/11/22 07/11/22 19:43 11:08 18:01 Hgb 9.3 L Sodium Potassium Chloride Carbon Dioxide BUN Creatinine Estimated Creat Clear Estimated GFR Glucose Calcium Ionized Calcium Carlos Phosphorus Magnesium Total Bilirubin AST ALT Alkaline Phosphatase Troponin I 0.05 H C-Reactive Protein NT-Pro-B Natriuret Pep Total Protein Albumin Blood Type A Negative Antibody Screen POSITIVE Antibody Identification Anti-e Crossmatch ([facility]) See Detail 07/11/22 07/12/22 07/12/22 19:17 02:00 06:40 Hgb 8.8 L 7.9 L* 8.1 L Sodium Potassium Chloride Carbon Dioxide BUN Creatinine Estimated Creat Clear Estimated GFR Glucose Calcium Ionized Calcium Carlos Phosphorus Magnesium Total Bilirubin AST ALT Alkaline Phosphatase Troponin I C-Reactive Protein NT-Pro-B Natriuret Pep Total Protein Albumin Blood Type Antibody Screen Antibody Identification Crossmatch ([facility]) 07/12/22 07/12/22 06:40 06:40 Hgb Sodium 137 Potassium 4.7 Chloride 108 Carbon Dioxide 27 BUN 23 Creatinine 1.0 Estimated Creat Clear 68.57 Estimated GFR 83 Glucose 88 Calcium 8.9 Ionized Calcium Carlos 1.21 Phosphorus 3.6 Magnesium 2.3 Total Bilirubin 3.1 H AST 120 H ALT 35 Alkaline Phosphatase 72 Troponin I 0.05 H C-Reactive Protein 2.7 H NT-Pro-B Natriuret Pep 530 H Total Protein 6.6 Albumin 4.0 Blood Type Antibody Screen Antibody Identification Crossmatch ([facility])
[2022-07-12 11:33] LABS: Haptoglobin <10 mg/dL (30-200)
[2022-07-12 15:00] VITALS: BP 119/86; PULSE 69; PULSE 87; RESP 16; TEMP 36.8; O2SAT 96
[2022-07-12 17:19] LABS: Folate, Serum 11.6 ng/mL (>=5.9)
--- NOTE | 2022-07-12 17:37 | PC.NURSE ---
Addendum entered by Tanvi Burciaga RN 07/12/22 18:34: NURSE TO NURSE REPORT GIVEN TO [facility] VIA PHONE AROUND 1820. PATIENT AWARE AND CALLED TO UPDATED HER. Original Note: PATIENT PLEASANT AND COOPERATIVE, UP IND STEADY GAIT, DECLINING LIGHTHEADEDNESS AND DIZZINESS, PATIENT DID EXPRESS RIGHT CALF PAIN THIS MORNING NO SWELLING OR REDNESS NOTED, MD UPDATED AND ULTRASOUND ORDERED, PATIENT DECLINING NEED FOR INTERVENTION R/T PAIN, TOLERATING REGULAR DIET NO NAUSEA OR PAIN, VOIDING, PATIENT DID EXPRESS FRUSTRATION R/T THE WAIT FOR BED AVAILABILITY AT [facility], PATIENT REASSURED AND UPDATED THROUGHOUT SHIFT VERBALIZED UNDERSTANDING, TELE SHOWING NSR.
--- NOTE | 2022-07-12 19:31 | P.DS_ITS ---
DS: Providers Provider Date Seen: 07/12/22 Date of admission: 07/10/22 22:07 Primary care physician: Dean Parisi MD Admitting Clinician: Carmen Lowe MD Consults: 07/10/22 22:07 Consult to Physical Therapy [CONS] Routine Comment: Reason(s) for PT Consult:: Evaluate and Treat Any Restrictions?:: No Restrictions Consult to Firmware Test Engineer [CONS] Routine Comment: Reason for Consult:: Social Service Consult 07/11/22 11:55 Consult to Physician [CONS] Routine Comment: ?small bowel obstruction Consulting Provider: Michelle Lopez Has provider been notified: Yes Attending Physician on discharge: Carmen Lowe MD Date of Discharge: 07/12/22 DS: Diagnosis Discharge Diagnosis (1) Hemolytic anemia: Status: Acute Problem details: On admission, transfused 3 unit O neg. Antibody screen is +; [place] will assist in obtaining further blood if needed. Elevated lactate dehydrogenase, 1842 with elevated retic count, +LAURA. Recent COVID infection, possibly AIHA. Peripheral smear pending, high suspicion for malignancy. Needs higher level of care facility with Hematology support. (2) Pulmonary nodule: Status: Acute Problem details: Outpatient workup (3) Tobacco dependence: Status: Acute (4) COVID-19: Status: Acute Problem details: 06/15/22, not hospitalized. Bilateral DVT dx at same time; Eliquis initiated. (5) DVT (deep venous thrombosis): Status: Acute Problem details: Diagnosed 05/2022, presumably 2/2 COVID. Started eliquis 06/15 and stayed on high dose x 3 weeks; no resultant bleeding noted. DS: Summary Hospital Course Hospital Course: HOSPITALIST TRANSFER SUMMARY ATTENDING PHYSICIAN: Carmen Lowe MD REASON FOR TRANSFER Acute hemolytic anemia Mild demand ischemia BRIEF HOSPITAL COURSE: Patient was admitted to our med surge unit secondary to acute weakness, shortness of breath and recent COVID diagnosis with bilateral DVTs. He had been on Eliquis, misunderstood the instructions and was taking a greater than recommended dose. There was no GI bleeding. However when he arrived in our ED 2 days ago his hemoglobin was 4.9. Inadvertently is CBC was not drawn when he was diagnosed with COVID and started on Eliquis. So it is not clear when this anemia began. However in the workup of this anemia we found him to be in acute hemolysis. His LDH, bilirubin, MCV, retic count, LAURA positive let us to this conclusion. Autoimmune sub classified but cause unknown. Presumably COVID or Eliquis or some other diagnosis is still in the differential. He received 3 units of O positive blood. He stabilized. He has felt better. His troponin was mildly increased likely due to demand ischemia from the acute on chronic anemia. In discussion with [facility] Hematology it was felt best to transfer for further workup. He was started on and received 2 doses of IV Solu-Medrol at 60 mg Q 24 hours x2 doses. He then received p.o. prednisone at 70 mg, 1 make per kg, starting this morning. It should also be noted that he has a right upper lobe nodule that is spiculated and concerning for malignancy. This was actually noted in June of 2021 when he was admitted for a an internal hernia surgery. And he did not follow- up. 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 SERVICES NOT AVAILABLE HERE THAT THIS PATIENT NEEDS: Hematology ACCEPTING PHYSICIAN/SERVICE/LOCATION: Hospitalist service MEDICATIONS AT TIME OF TRANSFER: See Mar DRIPS/LINES: Peripheral IV VITAL SIGN, MEDICATION, LAB/MICRO, IMAGING SUMMARY (full details available in account tabs or by records request) REVIEW OF SYSTEMS Unchanged. PHYSICAL EXAM: CONSTITUTIONAL: VITAL SIGNS: see record. Exam unchanged from earlier with notable exceptions: DISPOSITION: Transfer by EMS, ground to [facility] Time spent on discharge >30 minutes. This includes speaking with accepting physician; family/patient and coordinating meds/drips for transfer Status at Discharge Functional status at discharge: independent ambulation Overall status at discharge: patient is progressing back to baseline Time Spent with Patient Time attestation: Total time spent providing and/or coordinating discharge services: Time spent: Greater than 30 minutes Exam Const: Vital Signs, click to edit/add: Vital Signs - 24 hr 07/11/22 19:47 07/11/22 22:16 07/12/22 02:13 Temperature 97.9 F 98 F Pulse Rate Pulse Rate [Left P ulse Oximeter] 84 72 Respiratory Rate 16 16 Blood Pressure [Le ft Arm] 107/65 102/62 Pulse Oximetry 95 91 93 Oxygen Delivery Me thod Room Air Room Air 07/12/22 07:27 07/12/22 07:00 07/12/22 11:00 Temperature 98.1 F 98.1 F Pulse Rate 69 Pulse Rate [Left P ulse Oximeter] 83 84 Respiratory Rate 16 16 Blood Pressure [Le ft Arm] 112/88 129/66 Pulse Oximetry 96 95 Oxygen Delivery Me thod Room Air Room Air 07/12/22 15:00 07/12/22 15:00 Temperature 98.3 F Pulse Rate 69 Pulse Rate [Left P ulse Oximeter] 87 Respiratory Rate 16 Blood Pressure [Le ft Arm] 119/86 Pulse Oximetry 96 Oxygen Delivery Me thod Room Air DS: Data Data Completed and Pending Labs on day of discharge: Labs from last 24 hours 07/12/22 07/12/22 07/12/22 06:40 06:40 06:40 Hgb 8.1 L Sodium 137 Potassium 4.7 Chloride 108 Carbon Dioxide 27 BUN 23 Creatinine 1.0 Estimated Creat Clear 68.57 Estimated GFR 83 Glucose 88 Haptoglobin Calcium 8.9 Ionized Calcium Carlos 1.21 Phosphorus 3.6 Magnesium 2.3 Total Bilirubin 3.1 H AST 120 H ALT 35 Alkaline Phosphatase 72 Troponin I 0.05 H C-Reactive Protein 2.7 H NT-Pro-B Natriuret Pep 530 H Total Protein 6.6 Albumin 4.0 RBC Fol Adelso for Serum Blood Type Antibody Screen Antibody Identification Crossmatch ([facility]) 07/12/22 07/10/22 07/10/22 02:00 19:43 19:43 Hgb 7.9 L* Sodium Potassium Chloride Carbon Dioxide BUN Creatinine Estimated Creat Clear Estimated GFR Glucose Haptoglobin <10 L Calcium Ionized Calcium Carlos Phosphorus Magnesium Total Bilirubin AST ALT Alkaline Phosphatase Troponin I C-Reactive Protein NT-Pro-B Natriuret Pep Total Protein Albumin RBC Fol Adelso for Serum 11.6 Blood Type A Negative Antibody Screen POSITIVE Antibody Identification Anti-e Crossmatch ([facility]) See Detail Discharge Plan Discharge Disposition: [facility] Date of Admission: 07/10/22 22:07 Attending Provider on Discharge: Carmen Lowe Consulting Providers: Michelle Lopez Primary Care Provider: Dean Parisi Condition: Unchanged Discharge Medications: Discontinued Eliquis 5 mg tablet 5 mg PO BID Qty: 60 1RF Discharge Orders: Discharge Order (Routine); Ordered 07/12/22 Ordered By: Carmen Lowe Follow Up Appointments: Dean Parisi MD [Primary Care Provider] - Forms: [facility] Info Instructions Hospital Course: HOSPITALIST TRANSFER SUMMARY ATTENDING PHYSICIAN: Carmen Lowe MD REASON FOR TRANSFER Acute hemolytic anemia Mild demand ischemia BRIEF HOSPITAL COURSE: Patient was admitted to our med surge unit secondary to acute weakness, shortness of breath and recent COVID diagnosis with bilateral DVTs. He had been on Eliquis, misunderstood the instructions and was taking a greater than recommended dose. There was no GI bleeding. However when he arrived in our ED 2 days ago his hemoglobin was 4.9. Inadvertently is CBC was not drawn when he was diagnosed with COVID and started on Eliquis. So it is not clear when this anemia began. However in the workup of this anemia we found him to be in acute hemolysis. His LDH, bilirubin, MCV, retic count, LAURA positive let us to this conclusion. Autoimmune sub classified but cause unknown. Presumably COVID or Eliquis or some other diagnosis is still in the differential. He received 3 units of O positive blood. He stabilized. He has felt better. His troponin was mildly increased likely due to demand ischemia from the acute on chronic anemia. In discussion with [facility] Hematology it was felt best to transfer for further workup. He was started on and received 2 doses of IV Solu-Medrol at 60 mg Q 24 hours x2 doses. He then received p.o. prednisone at 70 mg, 1 make per kg, starting this morning. It should also be noted that he has a right upper lobe nodule that is spiculated and concerning for malignancy. This was actually noted in June of 2021 when he was admitted for a an internal hernia surgery. And he did not follow-up. 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 SERVICES NOT AVAILABLE HERE THAT THIS PATIENT NEEDS: Hematology ACCEPTING PHYSICIAN/SERVICE/LOCATION: Hospitalist service MEDICATIONS AT TIME OF TRANSFER: See Mar DRIPS/LINES: Peripheral IV VITAL SIGN, MEDICATION, LAB/MICRO, IMAGING SUMMARY (full details available in account tabs or by records request) REVIEW OF SYSTEMS Unchanged. PHYSICAL EXAM: CONSTITUTIONAL: VITAL SIGNS: see record. Exam unchanged from earlier with notable exceptions: DISPOSITION: Transfer by EMS, ground to [facility] Time spent on discharge >30 minutes. This includes speaking with accepting physician; family/patient and coordinating meds/drips for transfer
--- NOTE | 2022-07-12 19:51 | PC.NURSE ---
193 Pt discharged to [facility] via EMS transport via cart, pt just departed, vss. Updated [facility] of ETA. Another nurse assisted in patient's discharge/helping EMS.
== END 2022-07-12 19:35 | disposition short-term general hospital (02) | DRG 809 ==
LOC: ED 20:35 → MEDSURG 21:33
PROVIDERS: Hospitalist; Admitting Provider Family Medicine; Emergency Provider Emergency Medicine Emergency Medical Services; PCP Family Medicine; Visit Provider Family Medicine
DX: D59.9 Acquired hemolytic anemia, unspecified (principal); I24.8 Other forms of acute ischemic heart disease; I82.443 Acute embolism and thrombosis of tibial vein, bilateral; K56.600 Partial intestinal obstruction, unspecified as to cause; U09.9 Post COVID-19 condition, unspecified; R91.1 Solitary pulmonary nodule; F17.210 Nicotine dependence, cigarettes, uncomplicated; T45.511A Poisoning by anticoagulants, accidental (unintentional), initial encounter; E80.6 Other disorders of bilirubin metabolism
CPT/HCPCS: 36415; 36430; 71260; 74176; 80048; 80053; 80076; 81001; 82150; 82330; 82607; 82728; 82746; 82803; 82977; 83010; 83540; 83550; 83605; 83615; 83690; 83735; 83880; 84100; 84145; 84484; 84550; 85018; 85025; 85045; 85610; 86140; 86850; 86860; 86870; 86880; 86900; 86901; 86904; 86905; 86906; 86922; 86970; 86978; 87086; 87426; 93005; 93971; 97116; 97161; 99285; G0378; J2920; J7050; J7120; J7512; P9016; Q9967

== ENCOUNTER 2022-07-12 19:25 | Outpatient (CLI) | payer OTHER, SELFPAY ==
--- OUTSIDE RECORDS SUMMARY | 2022-07-27 07:36 | XMS_ITS | Clinical Summary ---
:1955 External Reference #:[id number] Author Organization [facility] [place] [address] Care Team Providers Name Role Phone Dean Parisi MD Primary Care Provider Allergies Active Allergy Reactions Severity Noted Date Comments Blood-Group Specific Other - Describe In 07/13/2022 Patient has a Warm Substance Comment Field Auto-Antibody and an Auto Anti-e (li ttle) Antibody. Blood products may be delayed. Draw patient 24 hour s prior to transfusion. Fo r VasoNova testing, draw o ne red top and two purple top tube s for all Type and Sc reen orders. Penicillins 07/22/2008 Medications Medication Sig Dispensed Refills Start Date End Date Status folic acid 1 mg Take 1 Tablet 30 Tablet 3 07/20/2022 Active tabletIndications (1 mg) by : Autoimmune mouth once hemolytic anemia daily. (HC) predniSONE Take 7 210 Tablet 0 07/20/2022 Active (DELTASONE) 10 mg Tablets (70 2 tabletIndications mg) by mouth : Autoimmune once daily hemolytic anemia with a meal. (HC) pantoprazole Take 1 Tablet 30 Tablet 1 07/20/2022 Ac tive (PROTONIX) 40 mg (40 mg) by delayed-release mouth once tabletIndications daily before : Autoimmune a meal. hemolytic anemia (HC) trimethoprim-sulf Take 1 Tablet 30 Tablet 1 07/20/2022 Active amethoxazole, by mouth once 80-400 mg, daily. (BACTRIM SS; SEPTRA SS) tabIndications: PROPHYLAXIS apixaban Take 1 Tablet 60 Tablet 2 07/19/2022 Activ e (ELIQUIS) 5 mg (5 mg) by tabletIndications mouth two : Deep vein times daily. thrombosis (DVT) of distal vein of lower extremity, unspecified chronicity, unspecified laterality (HC) nicotine 7 mg/24 Apply 1 Patch 28 Patch 0 07/19/2022 Active hr (NICODERM; on dry, HABITROL) 7 mg/24 clean, hr hairless skin patchIndications: once daily. Lung nodule, Tobacco dependence CELEBREX 200 MG take 1 60 6 03/19/2009 Dis continued CAP capsule (200 2 (Pharma cist mg) by oral change p er route 2 times medica tion per day as history ( E-cancel needed not sent)) VICODIN 5 MG-500 take 1-2 36 2 01/21/2009 Di scontinued MG tablets by 2 (Pharmaci st TABIndications: oral route at change per Neck pain, Pain bed time as me dication in joint, needed for history ( E-cancel shoulder region pain not sent)) NEURONTIN 300 MG take 1 30 3 12/24/2008 Di scontinued CAP capsule (300 2 (Pharma cist mg) by oral change p er route qhs prn medica tion history (E -cancel not sent)) MEDROL (JARAD) 4 MG per pack 1 pack 0 04/10/2009 D iscontinued TABS IN A DOSE 2 (Phar macist PACK change per medication history (E -cancel not sent)) PERCOCET 5 MG-325 take 1 tablet 24 0 04/10/2009 02 Discontinued MG TAB by oral route 2 (Pharm acist every 6 hours change per as needed medication history (E -cancel not sent)) apixaban Take 5 mg by 0 Discont inued (ELIQUIS) 5 mg mouth two 2 (Reor adrian tablet times daily. 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 10/13/2008 Neck pain 06/05/2008 Pain in joint, shoulder region 06/05/2008 Encounters Date Type Specialty Care Team Description 07/26/2022 Orders Only Monalisa Carbajal, <No sca ns attached> 07/25/2022 Hospital Encounter Rafal Atkinson DVT (deep venous DO Rk thromboembolism ), acute, bilatera l (HC) 07/25/2022 Hospital Encounter Autoimmun e hemolytic anemia (HC) (Pr imary Dx) 07/25/2022 Office Visit Rafal Atkinson DO 07/25/2022 Hospital Encounter AleahPedroDaliaaminata Milian, Autoimmune hemolytic PA anemia (HC) 07/25/2022 Travel 07/22/2022 Hospital Encounter Autoimmun e hemolytic anemia (HC) 07/22/2022 Hospital/[facility] Nohemi Solo RN Pre Proc edure (pvp) Telephone Encounter 07/22/2022 Travel 07/21/2022 Patient Outreach Cathy Boyd RN P rimary RN Care Management; Hos pital F/U (Lace=57) 07/19/2022 Orders Only [place], <No s cans attached> PA 07/12/2022 - Hospital Encounter [facility] [place] Hospital[facility] Lung nodule (Primary Dx); 07/19/2022 Of Autoimmune hemolytic anemia (HC); Daniel Graham, Deep vein thrombosis (DVT) of distal vein of lower extremity, unspecified chronicity, unspecified laterality (HC); Tobacco dependence Guy Nayak MD Discharge Summary - Daniel Graham MD - 07/19/2022 12:44 PM CST Images from the original not e were not included. HOSPITALIST DISCHARGE SUMMAR Y ? ? [facility] Admission Date: 07/12/2022 Discharge Date: 07/19/2022 Discharge Plan: Kiran mcpherson was discharged to home. Principal Diagnosis Autoimmune hemolytic anemia Hospital Problem List Principal Problem: Autoimmune hemolytic anemia (HC) Active Problems: Lung nodule Recent COVID infection DVT (deep venous thrombosis ) (HC) Tobacco dependence ADDITIONAL COMMENTS REGARDIN G DIAGNOSIS SPECIFICITY Additional Diagnosis Informa tion ?? Hospital Course Mr. Kiran Evans is a 67 y.o. male with a history of recent COVID-19 (positive test 10/26), bilateral dvt (new finding) who presents with shortness of breath, weakness. Admitted to [facility] ostal 07/10 for symptoms o f weakness, sob, and jaundice. Had recent COVID-19 and at the same time a new diagnosis of bilateral DVT's on 06/15. He did have symptoms of cough, nasal congestion, sinus pr essure but that mostly resol taylor At that time, he was initiated on eliquis (but accidentally continued taking high loading dose for 3 weeks, longer than recommended load). He was doing fine up until r ecently when he developed more dyspnea on exertion, weakness, and yellow eyes and skin.He presented to the ER on 07/10 at which time initial workup there included Hg 4.9, uzma irubin 3.1, Ferritin 473, T 127, LDH 1842, elevated retic count. Got three units of blood, workup continued including Bradley test, found to be positive, haptoglobin which we now see is nearly undetect able. Presumed to have autoi mmune hemolytic anemia, contacted our hematology department ([place]) who recommended initiating steroid treatment which they did with solumedrol x 2 doses, now followed by pred nisone 70 which was given to day. CT imaging was performed which showed a spiculated lung mass, suspicious for malignancy (seen almost a year ago, was not followed up for unclear reasons). Does state kwadwo t he has had a 15 pound unin tentional weight loss recently. Transfer requested to [facility] where hematology services are available. Upon arrival patient states he feels better than on admission as the three units of blood seemed to have helped with sob and weakness. He denies cough, sputum, pleuritic pain, nausea, vomiting, has been having normal BM's, eating and drinking normally after having clears for one day for SBO suggested from CT findings (no obstructive symptoms). Patient continues on steroid s for his hemolytic anemia and managed by the hematology team. Retic count and hg seemed to mostly stabilized but hematology has elected to add rituxan in addition, dose one given on 07/18 (will receive a total of 4 infusions, once weekly). Pulmonary consulted and suggested repeat ct and follow up with them to consider biopsy in the future. Hematology will see in [place] and follow twice weekly labs as ordered. Recommendations for Outpatie nt Provider ? ? PCP: No primary care provider on file. Recommendations for outpati ent provider Specific recommendations to be addressed at the follow up visit: 1. Twice weekly labs to be m anaged by hematology, will see them weekly for rituxan infusions for three additional weeks. They will decide when to taper prednisone (anticipate several month long treatment course) 2. Follow up with pulmonary team with repeat CT as ordered to determine if lung nodule needs to be biopsied in near future 3. Anticoagulation for dvt a s previously planned Medication regimen changes: see Hospital Course above. Follow-up labs/imaging: none Other specialty follow-up no t included in DC orders: hematology, pulmonary Special considerations: none . Functional evaluations: Fall Risk: Total Score (If 5 or > is High Risk): 1 (07/18/221940) NuDESC (>/=2 abnormal): 0 ( 07/18/221940) MOCA: // SLUMS: Discharge Medications Your Home Medicines START taking these medicines Instructions folic acid 1 mg tablet For diagnoses: Autoimmune he molytic anemia Start taking on: June Take 1 Tablet (1 mg) by sharon once daily. nicotine 7 mg/24 hr 7 mg/24 hr patch For diagnoses: Lung nodule, Tobacco dependence Commonly known as: NICODERM; HABITROL Apply 1 Patch on dry, clean , hairless skin once daily. pantoprazole 40 mg delayed-r elease tablet For diagnoses: Autoimmune he molytic anemia Start taking on: June Commonly known as: PROTONIX Take 1 Tablet (40 mg) by mo [facility] once daily before a meal. predniSONE 10 mg tablet For diagnoses: Autoimmune he molytic anemia Start taking on: June Commonly known as: DELTASONE Take 7 Tablets (70 mg) by m out once daily with a meal. trimethoprim-sulfamethoxazol e (80-400 mg) Tab For diagnoses: Autoimmune he molytic anemia Start taking on: June Commonly known as: BACTRIM S S; SEPTRA SS Take 1 Tablet by mouth once daily. CONTINUE taking these medici radha Instructions apixaban 5 mg tablet For diagnoses: Deep vein thr ombosis (DVT) of distal vein of lower extremity, unspecified chronicity, unspecified laterality (HC) Commonly known as: ELIQUIS Take 1 Tablet (5 mg) by sharon two times daily. Where to get your medicines These medications were sent to [facility] [address] [facility] [id number], [facility] [address] Hours: Open 24 Hours ?? apixaban 5 mg tablet ?? folic acid 1 mg tablet ?? nicotine 7 mg/24 hr 7 mg/ 24 hr patch ?? pantoprazole 40 mg delaye d-release tablet ?? predniSONE 10 mg tablet ?? 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 Additionally, spiculated right upper lobe nodule, size 1.9 x 1.8 cm, similar finding on left CT abdomen/pelvis Dilated fluid filled small b owel loops, up to 4.6 cm, suspicious for SBO, benign appearing renal cortical cysts US right leg DVT right posterial tibial v ein, noncompressible clot throughout gastrocnemius vein in right calf Consultants Encounter Notes Consults from Micah Hurtado MD (Pulmonary Medicine) Consults from Tonya Atkinson DO (Hematology and Oncology) Diet / Activity / Follow-Up After Discharge Orders and I nstructions Instructions after adrienne g a COVID vaccine: Congrats! You received a Pf izer COVID-19 vaccine during your hospital stay. It is common to have some side effects after a COVID-19 vaccine such a pain, redness or swelling at the injection site. You m ay also be tired, have a hea dache, fevers and chills. These should all go away within a few days. If you received your first d ose of the Pfizer vaccine, you will need your second dose after 21 days. If you would like to get your next dose at an [facility] clinic, please call [phone] to schedule an appointment or go to your local pharmacy. Primary Care Provider follo w up appointment(s) No Primary Care Provider on file When to follow up: 1 to 5 d ays Regular diet: - eat a wide variety of nohemy ds, including fruits and vegetable, dairy, grains and meats - limit the amount of solid fat such as butter, margarine and shortening - get most of your fat sourc es from fish, nuts and vegetable oils Up as tolerated It is important to slowly r eturn to your regular level of activity. Start with 5-10 minutes at one time and slowly build to 30 minutes at one time. Save your energy by spreading out activities that make you tired. Rest as needed. When should you be concerne d? Your health care provider i s: No primary care provider on file. Please call your health care provider if: - you feel you are getting w orse or having an increase in problems - fever greater than 101 [address] [place]aret - increasing shortness of br eath - any signs of infection (in creasing redness, swelling, tenderness, warmth, change in appearance, or increased drainage) - blood in your urine or sto ol - coughing or vomiting blood - nausea (upset stomach) and vomiting and/or diarrhea that will not stop - severe pain that is not re lieved by medicine, rest or ice Call 911 if you feel you are having a medical emergency. Why were you at the [facility]? You were in the hospital fo r autoimmune hemolytic anemia, a process where your body recognizes its own blood cells as foreign and destroys them. This process is being slowed with the use of immune barajas ppression drugs, prednisone and rituxan infusions. While you are on immune suppression, you are at risk for certain infections and will be taking a preventative antibiotic. You will need to schedule fol low up with the lung doctors and repeat CT imaging to decide if the lung nodule needs to be biopsied or simply watched. Lastly, the hematology team will follow blood counts twice weekly and give infusio ns of rituxan weekly and ult imately decide when to taper the prednisone. PFIZER SUBSEQUENT DOSE COVI D-[address] CHEST WO *Refer to Results Review fo r Normal Ranges and Result Status Lab Results Component Value Date CREATININE 1.03 07/12/2022 GFRNOTAFRICA >60 08/03/2019 GFRAFRICAN >60 08/03/2019 EGFRCHEM 80 (L) 07/12/2022 Pending Studies Lab results that may not be resulted at time of discharge: (From admission through now) Start Ordered 07/15/22 1315 HAPTOGLOBIN Q 48H, ROUTINE (with ALEJANDRO, TIMED occurrences) Start Priority Status 07/15/22 1315 ALEJANDRO Final res ult Details 07/17/22 1315 TIMED Final re sult Details 07/15/22 1302 Total time spent on discharg e coordination: 35 minutes. Patient was seen and examined today. Daniel Graham MD Hospitalist, [facility] ? ? [phone] [employer] from Last 3 Months Immunizations Name Administration Dates Next Due COVID-19 vaccine (Innography 30mcg/0.3mL) 12YO+ BLAZE-SUCROSE PF, MDV Influenza, Inactivated AIIV4 (Age 65+ Years) Preserv Free Family History Medical History Relation Name Comments Brain cancer Brother Relation Name Status Comments Brother Father Mother Social History Tobacco Use Types Packs/Day Years Used Date Current Some Day Smoker Smokeless Tobacco: Never Used Comments: quit PPD smoking one yr ago, s till occasionally smokes a cigarette or two Alcohol Use Standard Drinks/Week Comments No 0 (1 standard drink = 0.6 oz pure alcoho l) Sex Assigned at Date Recorded Not on file COVID-19 Exposure Response Date Recorded In the last 10 days, have you been in contact with No / Unsu re 07/25/2022 10:57 AM [employer] someone who was confirmed or suspected to have Coronavirus/COVID-19? Obstetrics History Last Filed Vital Signs Vital Sign Reading Time Taken Comments Blood Pressure 115/59 07/25/2022 11:13 AM [employer] Pulse 97 07/25/2022 11:13 AM [employer] Temperature 37.3 ??C (99.1 ??F) 07/25/2022 11:13 AM [employer] Respiratory Rate 16 07/25/2022 11:13 AM [employer] Oxygen Saturation 100% 07/25/2022 11:13 AM [employer] Inhaled Oxygen Concentration - - Weight 69.6 kg (153 lb 6.4 oz) 07/25/2022 11:13 AM [employer] Height 175.3 cm (5' 9) 07/25/2022 11:13 AM [employer] Body Mass Index 22.65 07/25/2022 11:13 AM [employer] Plan of Treatment Upcoming Encounters Date Type Specialty Care Team Description 07/28/2022 Appointment 08/01/2022 Appointment 08/01/2022 Office Visit Monalisa Carbajal MD [address] [place], [place] [address] (Wo rk) 08/01/2022 Appointment 08/01/2022 Appointment 08/01/2022 Appointment 08/04/2022 Appointment 08/08/2022 Appointment 08/08/2022 Office Visit Mansoor Atkinson, DO [address] [facility] [id number] [place] [address] [phone] (Wo rk) 08/08/2022 Appointment 08/11/2022 Appointment Health Maintenance Due Date Last Done Comments Pneumococcal series for age 65+ (1 - PCV) 1962 Tdap 1967 Depression screening for age 12+ 1968 Hepatitis C screening for age 18-79 1974 Zoster (shingles) series for age 50+ (1 of 2) 1975 Tetanus booster 1976 Colonoscopy through age 75 2001 Lipids for age 45-75 2001 AAA screening age 55-77 2011 COVID-19 vaccine series (2 - Pfizer risk series) 08/05/2022 07/15/2022 BMI (ht and wt on same day) for age 18+ 07/25/2023 07/25/20 Influenza for age 65+ Completed 07/15/2022 Procedures Procedure Name Priority Date/Time Associated Comments Diagnosis US VENOUS LOWER STAT 07/25/2022 3:53 PM Leg DVT (deep Resul ts for this EXTREMITY BILATERAL [employer] venous procedur e are in thromboembolism), the result s acute, bilateral section. (HC) RED CELL MORPHOLOGY Timed 07/25/2022 10:49 Autoimmune Resu lts for this AM [employer] hemolytic anemia procedure a re in (HC) the results section. PLATELET ESTIMATE Timed 07/25/2022 10:49 Autoimmune Result s for this AM [employer] hemolytic anemia procedure a re in (HC) the results section. CBC WITH AUTO Timed 07/25/2022 10:49 Autoimmune Results fo r this DIFFERENTIAL AM [employer] hemolytic anemia procedure a re in (HC) the results section. HAPTOGLOBIN Today 07/25/2022 10:49 Autoimmune Results for this AM [employer] hemolytic anemia procedure a re in (HC) the results section. HEPATIC FUNCTION PANEL Today 07/25/2022 10:49 Autoimmune R esults for this AM [employer] hemolytic anemia procedure a re in (HC) the results section. LD,TOTAL Today 07/25/2022 10:49 Autoimmune Results for this AM [employer] hemolytic anemia procedure a re in (HC) the results section. RETICULOCYTES Today 07/25/2022 10:49 Autoimmune Results fo r this AM [employer] hemolytic anemia procedure a re in (HC) the results section. CBC WITH AUTO Today 07/25/2022 10:49 Autoimmune Results fo r this DIFFERENTIAL AM [employer] hemolytic anemia procedure a re in () the results section. RED CELL MORPHOLOGY Timed 07/22/2022 10:10 Autoimmune Resu lts for this AM [employer] hemolytic anemia procedure a re in () the results section. PLATELET ESTIMATE Timed 07/22/2022 10:10 Autoimmune Result s for this AM [employer] hemolytic anemia procedure a re in (HC) the results section. MANUAL DIFFERENTIAL Timed 07/22/2022 10:10 Autoimmune Resu lts for this AM [employer] hemolytic anemia procedure a re in (HC) the results section. CBC WITH AUTO Timed 07/22/2022 10:10 Autoimmune Results fo r this DIFFERENTIAL AM [employer] hemolytic anemia procedure a re in (HC) the results section. HAPTOGLOBIN Today 07/22/2022 10:10 Autoimmune Results for this AM [employer] hemolytic anemia procedure a re in (HC) the results section. HEPATIC FUNCTION PANEL Today 07/22/2022 10:10 Autoimmune R esults for this AM [employer] hemolytic anemia procedure a re in (HC) the results section. LD,TOTAL Today 07/22/2022 10:10 Autoimmune Results for this AM [employer] hemolytic anemia procedure a re in (HC) the results section. RETICULOCYTES Today 07/22/2022 10:10 Autoimmune Results fo r this AM [employer] hemolytic anemia procedure a re in (HC) the results section. CBC WITH AUTO Today 07/22/2022 10:10 Autoimmune Results fo r this DIFFERENTIAL AM [employer] hemolytic anemia procedure a re in (HC) the results section. SCAN CORRESP-IMAGING 07/20/2022 12:00 Res ults for this AM [employer] procedure are i n the results section. HAPTOGLOBIN Timed 07/19/2022 1:05 PM Results f or this [employer] procedure are i n the results section. BILIRUBIN,TOTAL/DIRECT Early AM 07/19/2022 8:24 AM Results for this [employer] procedure are i n the results section. RETICULOCYTES Early AM 07/19/2022 8:23 AM Results for this [employer] procedure are i n the results section. HEMATOCRIT Early AM 07/19/2022 8:23 AM Results f or this [employer] procedure are i n the results section. HEMOGLOBIN Early AM 07/19/2022 8:23 AM Results f or this [employer] procedure are i n the results section. PLATELET COUNT Early AM 07/19/2022 8:23 AM Results for this [employer] procedure are i n the results section. ANTI HBC Timed 07/18/2022 12:08 Autoimmune Results for this PM [employer] hemolytic anemia procedure a re in (HC) the results section. HBSAG (HBS) Timed 07/18/2022 12:08 Autoimmune Results for this PM [employer] hemolytic anemia procedure a re in (HC) the results section. RED CELL MORPHOLOGY Timed 07/18/2022 7:25 AM Re sults for this [employer] procedure are i n the results section. BILIRUBIN,TOTAL/DIRECT Early AM 07/18/2022 7:25 AM Results for this [employer] procedure are i n the results section. RETICULOCYTES Early AM 07/18/2022 7:25 AM Results for this [employer] procedure are i n the results section. HEMATOCRIT Early AM 07/18/2022 7:25 AM Results f or this [employer] procedure are i n the results section. HEMOGLOBIN Early AM 07/18/2022 7:25 AM Results f or this [employer] procedure are i n the results section. PLATELET COUNT Early AM 07/18/2022 7:25 AM Results for this [employer] procedure are i n the results section. HAPTOGLOBIN Timed 07/17/2022 10:26 Results for this AM [employer] procedure are i n the results section. APTT Early AM 07/17/2022 10:26 Results for this AM [employer] procedure are i n the results section. RED CELL MORPHOLOGY Timed 07/17/2022 7:11 AM Re sults for this [employer] procedure are i n the results section. PLATELET ESTIMATE Timed 07/17/2022 7:11 AM Resu lts for this [employer] procedure are i n the results section. BILIRUBIN,TOTAL/DIRECT Early AM 07/17/2022 7:11 AM Results for this [employer] procedure are i n the results section. RETICULOCYTES Early AM 07/17/2022 7:11 AM Results for this [employer] procedure are i n the results section. HEMATOCRIT Early AM 07/17/2022 7:11 AM Results f or this [employer] procedure are i n the results section. HEMOGLOBIN Early AM 07/17/2022 7:11 AM Results f or this [employer] procedure are i n the results section. PLATELET COUNT Early AM 07/17/2022 7:11 AM Results for this [employer] procedure are i n the results section. RETICULOCYTES Early AM 07/16/2022 7:14 AM Results for this [employer] procedure are i n the results section. APTT Early AM 07/16/2022 7:14 AM Results f or this [employer] procedure are i n the results section. HEMATOCRIT Early AM 07/16/2022 7:14 AM Results f or this [employer] procedure are i n the results section. HEMOGLOBIN Early AM 07/16/2022 7:14 AM Results f or this [employer] procedure are i n the results section. PLATELET COUNT Early AM 07/16/2022 7:14 AM Results for this [employer] procedure are i n the results section. HAPTOGLOBIN ALEJANDRO 07/15/2022 1:57 PM Results f or this [employer] procedure are i n the results section. RED CELL MORPHOLOGY ALEJANDRO 07/15/2022 6:57 AM Re sults for this [employer] procedure are i n the results section. PLATELET ESTIMATE ALEJANDRO 07/15/2022 6:57 AM Resu lts for this [employer] procedure are i n the results section. RETICULOCYTES LAEJANDRO 07/15/2022 6:57 AM Results for this TYPEWRITER [employer] procedure are i n the results section. APTT Today 07/15/2022 6:57 AM Results f or this [employer] procedure are i n the results section. HEMATOCRIT Early AM 07/15/2022 6:57 AM Results f or this [employer] procedure are i n the results section. HEMOGLOBIN Early AM 07/15/2022 6:57 AM Results f or this [employer] procedure are i n the results section. PLATELET COUNT Early AM 07/15/2022 6:57 AM Results for this [employer] procedure are i n the results section. APTT Timed 07/15/2022 1:07 AM Results f or this [employer] procedure are i n the results section. APTT Timed 07/14/2022 6:03 PM Results f or this [employer] procedure are i n the results section. APTT Timed 07/14/2022 11:33 Results for this AM [employer] procedure are i n the results section. PNH PANEL Early AM 07/14/2022 4:55 AM Results f or this [employer] procedure are i n the results section. PERIPHERAL BLD Early AM 07/14/2022 4:55 AM Results for this MORPHOLOGY [employer] procedure are i n the results section. RED CELL MORPHOLOGY ALEJANDRO 07/14/2022 4:55 AM Re sults for this [employer] procedure are i n the results section. PLATELET ESTIMATE ALEJANDRO 07/14/2022 4:55 AM Resu lts for this [employer] procedure are i n the results section. CBC WITH AUTO ALEJANDRO 07/14/2022 4:55 AM Results for this DIFFERENTIAL [employer] procedure are i n the results section. RETICULOCYTES ALEJANDRO 07/14/2022 4:55 AM Results for this [employer] procedure are i n the results section. CBC WITH AUTO ALEJANDRO 07/14/2022 4:55 AM Results for this DIFFERENTIAL [employer] procedure are i n the results section. APTT Timed 07/14/2022 4:55 AM Results f or this [employer] procedure are i n the results section. HEMATOCRIT Early AM 07/14/2022 4:55 AM Results f or this [employer] procedure are i n the results section. HEMOGLOBIN Early AM 07/14/2022 4:55 AM Results f or this [employer] procedure are i n the results section. PLATELET COUNT Early AM 07/14/2022 4:55 AM Results for this [employer] procedure are i n the results section. APTT Today 07/13/2022 9:22 PM Results f or this [employer] procedure are i n the results section. ANTIBODY IDENTIFICATION Timed 07/13/2022 2:27 PM Results for this LAB USE ONLY [employer] procedure are i n the results section. ELUTION ANTIBODY ID Timed 07/13/2022 2:27 PM Re sults for this [employer] procedure are i n the results section. ELUTION SELECT CELLS Today 07/13/2022 2:27 PM R esults for this [employer] procedure are i n the results section. ELUTION PANEL Today 07/13/2022 2:27 PM Results for this ADDITIONAL [employer] procedure are i n the results section. ELUTION ACID ELU II Today 07/13/2022 2:27 PM Re sults for this [employer] procedure are i n the results section. HCHG [facility] ANTI-C3 Timed 07/13/2022 2:27 PM Resul ts for this [employer] procedure are i n the results section. HCHG IGG ANTIHUMAN Timed 07/13/2022 2:27 PM Res ults for this GLOBULIN [employer] procedure are i n the results section. DIRECT ANTIGLOBULIN Today 07/13/2022 2:27 PM Re sults for this TEST [employer] procedure are i n the results section. APTT ALEJANDRO 07/13/2022 2:27 PM Results f or this [employer] procedure are i n the results section. RED CELL MORPHOLOGY Timed 07/13/2022 1:20 PM Re sults for this [employer] procedure are i n the results section. HEMOGLOBIN Today 07/13/2022 1:20 PM Results f or this [employer] procedure are i n the results section. FIBRINOGEN,QUANTITATIVE Today 07/13/2022 1:20 PM Results for this [employer] procedure are i n the results section. APTT Timed 07/13/2022 1:20 PM Results f or this [employer] procedure are i n the results section. BILIRUBIN,TOTAL/DIRECT ALEJANDRO 07/13/2022 6:03 AM Results for this [employer] procedure are i n the results section. ANTI HBC ALEJANDRO 07/13/2022 6:03 AM Results f or this [employer] procedure are i n the results section. HBSAG (HBS) ALEJANDRO 07/13/2022 6:03 AM Results f or this [employer] procedure are i n the results section. DIFFERENTIAL ALEJANDRO 07/13/2022 6:03 AM Results f or this [employer] procedure are i n the results section. PROTIME-INR ALEJANDRO 07/13/2022 6:03 AM Results f or this [employer] procedure are i n the results section. HAPTOGLOBIN ALEJANDRO 07/13/2022 6:03 AM Results f or this [employer] procedure are i n the results section. HEPATIC FUNCTION PANEL ALEJANDRO 07/13/2022 6:03 AM Results for this [employer] procedure are i n the results section. CWS PATH REVIEW Timed 07/13/2022 6:03 AM Result s for this HEMATOLOGY [employer] procedure are i n the results section. RED CELL MORPHOLOGY Timed 07/13/2022 6:03 AM Re sults for this [employer] procedure are i n the results section. PLATELET ESTIMATE Timed 07/13/2022 6:03 AM Resu lts for this [employer] procedure are i n the results section. APTT Timed 07/13/2022 6:03 AM Results f or this [employer] procedure are i n the results section. BILIRUBIN,TOTAL Early AM 07/13/2022 6:03 AM Result s for this [employer] procedure are i n the results section. LD,TOTAL Early AM 07/13/2022 6:03 AM Results f or this [employer] procedure are i n the results section. RETICULOCYTES Early AM 07/13/2022 6:03 AM Results for this [employer] procedure are i n the results section. CBC W PLT NO DIFF Early AM 07/13/2022 6:03 AM Resu lts for this [employer] procedure are i n the results section. SCAN CORRESP-LABORATORY 07/13/2022 12:00 Results for this RESULTS AM [employer] procedure are i n the results section. SCAN CORRESP-IMAGING 07/13/2022 12:00 Res ults for this AM [employer] procedure are i n the results section. SCAN CORRESP-IMAGING 07/13/2022 12:00 Res ults for this AM [employer] procedure are i n the results section. SCAN CORRESP-IMAGING 07/13/2022 12:00 Res ults for this AM [employer] procedure are i n the results section. CREATININE ALEJANDRO 07/12/2022 11:51 Results for this PM [employer] procedure are i n the results section. BUN ALEJANDRO 07/12/2022 11:51 Results for this PM [employer] procedure are i n the results section. HEMATOCRIT ALEJANDRO 07/12/2022 11:51 Results for this PM [employer] procedure are i n the results section. HEMOGLOBIN ALEJANDRO 07/12/2022 11:51 Results for this PM [employer] procedure are i n the results section. PLATELET COUNT ALEJANDRO 07/12/2022 11:51 Results f or this PM [employer] procedure are i n the results section. APTT ALEJANDRO 07/12/2022 11:51 Results for this PM [employer] procedure are i n the results section. PROTIME-INR ALEJANDRO 07/12/2022 11:51 Results for this PM [employer] procedure are i n the results section. from Last 3 Months Results US VENOUS LOWER EXTREMITY BILATERAL (07/25/2022 3:53 PM TYPEWRITER [employer]) Anatomical Region Laterality Modality LEGS, LEG L, LEG R Ultrasound Specimen (Source) Anatomical Collection Method Collection Time Re ceived Time Location / / Volume Laterality 07/25/2022 3:43 PM [employer]WR[employer] Narrative 07/25/2022 4:18 PM [employer]WRITER [employer] VASCULAR ULTRASOUND REPORT KIRAN EVANS Accession#: ?? [id number] : ?1955 ??Study Date: ?? 07/25/2022 3:43:49 PM Age: ?67 years ?? Tech: ? MAP Gender: M ?Referring MD: TONYA ATKINSON Site: [facility] Study performed: ?Duplex US DVT s lona, (bilateral). Indication for study: LE pain/edema Study Quality: ?Good TECHNIQUE: Lower/upper extremity veins were examine d with duplex ultrasound, color-flow and spectral Doppler per exam protocol. Vein compressibility by transducer pressure was used to evaluate presence/absence of DVT/SVT. Venous flow and competence was evaluated by flow augmentation maneuvers per exam protocol. Insufficiency studies were performed with the patient in upright position, with vein diameters measured in mm, and reflux. IMPRESSION: 1. Bilateral gastrocnemius vein thrombo sis, likely subacute 2. Results discussed with Dr. Atkinson on 07/25/2022. COMPARISON: No prior study available for comparison. FINDINGS: Bilateral gastrocnemius veins are positi ve for DVT. MEASUREMENTS: + +--------+-----+--------+ ----+ ? RIGHT ?? RIGHT ??LEFT ?? LEFT ? Compress DVT Co mpress DVT ? SVT ? SVT + +--------+-----+--------+ ----+ CFV ?yes ?? None ? ?yes ?? None + +--------+-----+--------+ ----+ PFV ?yes ?? None ? ?yes ?? None + +--------+-----+--------+ ----+ SAPH/FEM JUNCT ??yes ?? None ??yes ?? None + +--------+-----+--------+ ----+ FV ?yes ?? None ??yes ?? None + +--------+-----+--------+ ----+ POPV ?yes ?? None ? ?yes ?? None + +--------+-----+--------+ ----+ PTV ?yes ?yes ? + +--------+-----+--------+ ----+ PERONEAL ?yes ?yes ? + +--------+-----+--------+ ----+ GSV ?yes ?? None ? ?yes ?? None + +--------+-----+--------+ ----+ SSV ?yes ?? None ? ?yes ?? None + +--------+-----+--------+ ----+ = Can't evaluate Gonzalez Brady MD. Electronically signed on 07/25/2022 4:18: 13 PM This study was performed and interpreted by a service accredited by the Intersocietal Accreditation Commission (IAC/Vascular), www.intersocietal.org/vascular Report generated by [employer]. ??Final ?? Procedure Note Gonzalez Brady MD - 07/25/20 22 VASCULAR ULTRASOUND REPORT KIRAN EVANS : 1955 Study Date: 07/25/2022 3:4 3:49 PM Age: 67 years Tech: MAP Gender: M Referring MD: RAFAL KEATING Site: [facility] Study performed: Duplex US DVT study, (b ilateral). Indication for study: LE pain/edema Study Quality: Good TECHNIQUE: Lower/upper extremity veins were examine d with duplex ultrasound, color-flow and spectral Doppler per exam protocol. Vein compressibility by transducer pressure was used to evaluate presence/absence of DVT/SVT. Venous flow and competence was evaluated by flow augmentation maneuvers per exam protocol. Insufficiency studies were performed with the patient in upright position, with vein diameters measured in mm, and reflux. IMPRESSION: 1. Bilateral gastrocnemius vein thrombo sis, likely subacute 2. Results discussed with Dr. Atkinson on 07/25/2022. COMPARISON: No prior study available for comparison. FINDINGS: Bilateral gastrocnemius veins are positi ve for DVT. MEASUREMENTS: + +--------+-----+--------+ ----+ RIGHT RIGHT LEFT LEFT Compress DVT Compress DVT SVT SVT + +--------+-----+--------+ ----+ CFV yes None yes None + +--------+-----+--------+ ----+ PFV yes None yes None + +--------+-----+--------+ ----+ SAPH/FEM JUNCT yes None yes None + +--------+-----+--------+ ----+ FV yes None yes None + +--------+-----+--------+ ----+ POPV yes None yes None + +--------+-----+--------+ ----+ PTV yes yes + +--------+-----+--------+ ----+ PERONEAL yes yes + +--------+-----+--------+ ----+ GSV yes None yes None + +--------+-----+--------+ ----+ SSV yes None yes None + +--------+-----+--------+ ----+ = Can't evaluate Gonzalez Brady MD. Electronically signed on 07/25/2022 4:18: 13 PM This study was performed and interpreted by a service accredited by the Intersocietal Accreditation Commission (IAC/Vascular), www.intersocietal.org/vascular Report generated by [employer]. Final Rafal Beckman Otis DO US (ABNORMAL) CBC WITH AUTO DIFFERENTIAL (07/25/2022 10:49 AM TYPEWRITER [employer])Only the most recent of3 resultswithin the time period is included. [facility] gist Method Time Signature WHITE BLOOD 13.6 (H) 4.5 - 07/25/2022 [facility] [employer] COUNT 11.0 12:12 PM TYPEWRITER [employer] [facility] LABORATORY-[facility] thou/cu TRAL mm LABORATORY RED BLOOD COUNT 2.08 (L) 4.30 - 07/25/2022 [facility] 5.90 12:12 PM [employer]WRITER [employer] [facility] LABORATORY-[facility] mil/cu mm TRAL LABORATORY HEMOGLOBIN 7.5 (L) 13.5 - 07/25/2022 [facility] 17.5 g/dL 12:12 PM [employer]WRITER [employer] LABORATORY-[facility] TRAL LABORATORY HEMATOCRIT 22.8 (L) 37.0 - 07/25/2022 [facility] 53.0 % 12:12 PM [employer]WRITER [employer] LABORATORY-[facility] TRAL LABORATORY MCV 110 (H) 80 - 100 07/25/2022 [facility] [employer] fL 12:12 PM [employer]WRITER [employer] LABORATORY-[facility] TRAL LABORATORY MCH 36.1 (H) 26.0 - 07/25/2022 [facility] 34.0 pg 12:12 PM [employer]WRITER [employer] LABORATORY-[facility] TRAL LABORATORY MCHC 32.9 32.0 - 07/25/2022 [facility] [employer] 36.0 g/dL 12:12 PM [employer]WRITER [employer] [facility] LABORATORY-[facility] TRAL LABORATORY RDW 21.8 (H) 11.5 - 07/25/2022 [facility] 15.5 % 12:12 PM [employer]ITER [employer] LAB[facility]ATORY-[facility] TRAL LABORATORY PLATELET COUNT 411 140 - 440 07/25/2022 [facility] thou/cu 12:12 PM [employer]WR[employer] LAB[facility]ATORY-[facility] mm TRAL LABORATORY MPV 9.5 6.5 - 07/25/2022 [facility] 11.0 fL 12:12 PM [employer]WR[employer] LAB[facility]ATORY-[facility] TRAL LABORATORY NRBC 0.0 % 07/25/2022 [facility] 12:12 PM [employer]WR[employer] LABORATORY-[facility] TRAL LABORATORY ABS NRBC 0.0 thou /cu 07/25/2022 [facility] mm 12:12 PM [employer] [facility] LAB[facility]ATORY-[facility] TRAL LABORATORY % NEUT 92.8 % 07/25/2022 [facility] 12:12 PM [employer] LAB[facility]ATORY-[facility] TRAL LABORATORY % LYMPH 2.6 % 07/25/2022 [facility] 12:12 PM [employer] LAB[facility]ATORY-[facility] TRAL LABORATORY % MONO 2.9 % 07/25/2022 [facility] 12:12 PM [employer]WR[employer] LAB[facility]ATORY-[facility] TRAL LABORATORY % EOS 0.4 % 07/25/2022 [facility] 12:12 PM [employer] LABORATORY-[facility] TRAL LABORATORY % BASO 0.1 % 07/25/2022 [facility] 12:12 PM [employer]WRITER [employer] LAB[facility]ATORY-[facility] TRAL LABORATORY % IMMATURE GRAN 1.2 % 07/25/2022 [facility] (METAS,MYELOS,DE 12:12 PM [employer]WRITER [employer] LABORATORY -[facility] OS) TRAL LABORATORY ABSOLUTE 12.6 (H) 1.7 - 7.0 07/25/2022 [facility] NEUTROPHILS thou/cu 12:12 PM [employer]WRITER [employer] LABORATORY-[facility] mm TRAL LABORATORY ABSOLUTE 0.4 (L) 0.9 - 2.9 07/25/2022 [facility] LYMPHOCYTES thou/cu 12:12 PM [employer]WR[employer] LAB[facility]ATORY-[facility] mm TRAL LABORATORY ABSOLUTE 0.4 <0.9 07/25/2022 [facility] MONOCYTES thou/cu 12:12 PM [employer]WRITER [employer] LABORATORY-[facility] mm TRAL LABORATORY ABSOLUTE 0.1 <0.5 07/25/2022 [facility] EOSINOPHILS thou/cu 12:12 PM [employer]WRITER [employer] LABORATORY-[facility] mm TRAL LABORATORY ABSOLUTE 0.0 <0.3 07/25/2022 [facility] BASOPHILS thou/cu 12:12 PM [employer]WR[employer] LABORATORY-[facility] mm TRAL LABORATORY ABSOLUTE 0.2 <0.3 07/25/2022 [facility] IMMATURE thou/cu 12:12 PM [employer]WRITER [employer] LABORATORY-[facility] GRANULOCYTES(MET mm TRAL ,MYELOS,PROS) LABORATORY Specimen Anatomical Collection Method / Collection Time Recei taylor Time (Source) Location / Volume Laterality Blood BLOOD SPECIMEN / Venipuncture / 07/25/2022 10:49 07/25 Unknown Unknown AM TYPEWRITER [employer] 10:59 AM TYPEWRITER [employer] Narrative [facility] LABORATORY-[facility] - 07/25/2022 12:12 PM TYPEWRITER [employer] Twice weekly ([facility] infusion center on Mon and in [place] on or Fridays Dalia HILL HEMATOLOGY Performing Organization Address City/State/ZIP Code Phon e Number [facility] [address] [place] [address] LABORATORY-CENTRAL 2000 LABORATORY (ABNORMAL) RED CELL MORPHOLOGY (07/25/2022 10:49 AM TYPEWRITER [employer])Only the most recent of8 resultswithin the time period is included. [facility] Method Time Signature POLYCHROMASIA Marked 07/25/2022 [facility] 12:12 PM [facility] TYPEWRITER [employer] LABORATORY-C ENTRAL LABORATORY SPHEROCYTES Moderate 07/25/2022 [facility] 12:12 PM [facility] TYPEWRITER [employer] LABORATORY-C ENTRAL LABORATORY RBC COMMENT Present (A) RBC 07/25/2022 [facility] morphology 12:12 PM HEALTH appears TYPEWRITER [employer] LABORATORY-C normal, RBC ENTRAL morphology LABORATORY within normal limits for newborns. *BASOPHILIC Present 07/25/2022 [facility] STIPPLING 12:12 PM [facility] TYPEWRITER [employer] LABORATORY-C ENTRAL LABORATORY *JOIE MOELLERY Present 07/25/2022 [facility] BODIES 12:12 PM [facility] TYPEWRITER [employer] LABORATORY-C ENTRAL LABORATORY RBC PAPPENHEIMER Present 07/25/2022 [facility] BODIES 12:12 PM [facility] TYPEWRITER [employer] LABORATORY-C ENTRAL LABORATORY Specimen Anatomical Collection Method / Collection Time Recei taylor Time (Source) Location / Volume Laterality Blood BLOOD SPECIMEN / Venipuncture / 07/25/2022 10:49 07/25 Unknown Unknown AM TYPEWRITER [employer] 10:59 AM TYPEWRITER [employer] Narrative [facility] LABORATORY-[facility] - 07/25/2022 12:12 PM [employer]WRITER [employer] Twice weekly ([facility] infusion center on Mon and in [place] on or Fridays Dalia HILL HEMATOLOGY Performing Organization Address [facility]/ZIP Code Phon e Number [employer] [address] [place] [address] LABORATORY-CENTRAL 2000 LABORATORY PLATELET ESTIMATE (07/25/2022 10:49 AM TYPEWRITER [employer])Only the most recent of6 results within the time period is included. Patholo gist Method Time Signature PLATELET Adequate Adequate, No 07/25/2022 [facility] [employer] ESTIMATE estimate 12:12 PM [employer]WRITER [employer] LABORATORY-[facility] TRAL LABORATORY Specimen Anatomical Collection Method / Collection Time Recei taylor Time (Source) Location / Volume Laterality Blood BLOOD SPECIMEN / Venipuncture / 07/25/2022 10:49 07/25 Unknown Unknown AM [employer]WRITER [employer] 10:59 AM TYPEWRITER [employer] Narrative [facility] LABORATORY-CENTRAL LABORAT ORY - 07/25/2022 12:12 PM [employer]WRITER [employer] Twice weekly ([facility] infusion center on Mon and in [place] on or Fridays Dalia HILL HEMATOLOGY Performing Organization Address [facility] Phon e Number [facility] [employer] [facility] [employer] [address] [place] [address] LABORATORY-CENTRAL 2000 LABORATORY (ABNORMAL) LD,TOTAL (07/25/2022 10:49 AM TYPEWRITER [employer])Only the most recent of3 results within the time period is included. P athologist Signature LD,TOTAL 951 (H) 125 - 220 07/25/2022 [facility] IU/L 11:35 AM [employer]WRITER [employer] LABORATORY-CENT RAL LABORATORY Specimen Anatomical Collection Method / Collection Time Recei taylor Time (Source) Location / Volume Laterality Blood BLOOD SPECIMEN / Venipuncture / 07/25/2022 10:49 07/25 Unknown Unknown AM [employer]WRITER [employer] 10:59 AM [employer]WRITER [employer] Dalia HILL CHEMISTRY Performing Organization Address City/[facility]/ZIP [facility] Phon e Number [employer] [address] [place] [address] LABORATORY-CENTRAL 2000 LABORATORY (ABNORMAL) RETICULOCYTES (07/25/2022 10:49 AM TYPEWRITER [employer])Only the most recent of9 resultswithin the time period is included. Analysis Performed At Patho logist Time Signature RETIC% 25.9 (H) 0.5 - 1.5 07/25/2022 [facility] % 12:14 PM [employer]WRITER [employer] LABORATORY-[facility] TRAL LABORATORY RETIC 0.57 (H) 0.03 - 07/25/2022 [facility] (ABSOLUTE) 0.08 12:14 PM [employer]WRITER [employer] LABORATORY-[facility] mil/cu mm TRAL LABORATORY Specimen Anatomical Collection Method / Collection Time Recei taylor Time (Source) Location / Volume Laterality Blood BLOOD SPECIMEN / Venipuncture / 07/25/2022 10:49 07/25 Unknown Unknown AM [employer]WRITER [employer] 10:59 AM [employer]WRITER [employer] Narrative [facility] LABORATORY-CENTRAL LABORAT ORY - 07/25/2022 12:14 PM [employer]WRITER [employer] Twice weekly ([facility] infusion center on Mon and in [place] on or Fridays Dalia HILL HEMATOLOGY Performing Organization Address City/[facility] Phon e Number [facility] [employer] [facility] [address] [place] [phone] LABORATORY-CENTRAL 2000 LABORATORY (ABNORMAL) HAPTOGLOBIN (07/25/2022 10:49 AM TYPEWRITER [employer])Only the most recent of6 results within the time period is included. P athologist Signature Haptoglobin <8 (L) 30 - 215 07/25/2022 [facility] mg/dL 11:35 AM [employer]WRITER [employer] LABORATORY-CENT RAL LABORATORY Specimen Anatomical Collection Method / Collection Time Recei taylor Time (Source) Location / Volume Laterality Blood BLOOD SPECIMEN / Venipuncture / 07/25/2022 10:49 07/25 Unknown Unknown AM [employer]WRITER [employer] 10:59 AM [employer]WRITER [employer] Dalia HILL CHEMISTRY Performing Organization Address City/[facility] Phon e Number [facility] [employer] [facility] [address] [place] [phone] LABORATORY-CENTRAL 2000 LABORATORY (ABNORMAL) HEPATIC FUNCTION PANEL (07/25/2022 10:49 AM TYPEWRITER [employer])Only the most recent of3 resultswithin the time period is included. Patholo gist Method Time Signature ALBUMIN 3.9 3.2 - 4.6 07/25/2022 [facility] g/dL 11:25 AM [employer]WRITER [employer] LABORATORY-[facility] TRAL LABORATORY PROTEIN,TOTAL 6.6 6.0 - 8.0 07/25/2022 [facility] g/dL 11:25 AM [employer]WRITER [employer] LABORATORY-[facility] TRAL LABORATORY GLOBULIN 2.7 2.0 - 3.7 07/25/2022 [facility] g/dL 11:25 AM [employer]WRITER [employer] LABORATORY-[facility] TRAL LABORATORY A/G RATIO 1.4 1.0 - 2.0 07/25/2022 [facility] 11:25 AM [employer]WRITER [employer] LABORATORY-[facility] TRAL LABORATORY BILIRUBIN,TOTAL 1.9 (H) 0.2 - 1.2 07/25/2022 [facility] mg/dL 11:25 AM [employer]WRITER [employer] LABORATORY-[facility] TRAL LABORATORY BILIRUBIN,DIRECT 1.0 (H) 0.1 - 0.5 07/25/2022 [facility] mg/dL 11:25 AM [employer]WRITER [employer] LABORATORY-[facility] TRAL LABORATORY BILIRUBIN,INDIRE 0.9 (H) 0.2 - 0.8 07/25/[address] [facility] [address] mg/dL 11:25 AM [employer]WRITER [employer] LABORATORY-[facility] TRAL LABORATORY ALK PHOSPHATASE 92 50 - 136 07/25/2022 [facility] IU/L 11:25 AM [employer]WRITER [employer] LAB[facility]ATORY-[facility] TRAL LABORATORY ALT (SGPT) 85 (H) 8 - 45 07/25/2022 [facility] IU/L 11:25 AM [employer]WRITER [employer] LAB[facility] AST (SGOT) 53 (H) 2 - 40 07/25/2022 [facility] IU/L 11:25 AM [facility] Specimen Anatomical Collection Method / Collection Time Recei taylor Time (Source) Location / Volume Laterality Blood BLOOD SPECIMEN / Venipuncture / 07/25/2022 10:49 07/25 Unknown Unknown AM [facility] 10:59 AM [facility] Performing Organization Address City/State/ZIP Code Phon e Number [email or web address] [id number] [place] [address] [facility] 2000 LABORATORY (ABNORMAL) MANUAL DIFFERENTIAL (07/22/2022 10:10 AM TYPEWRITER RIBBON WINDER) [facility] Method Time Signature % NEUTROPHILS 83.0 % 07/22/2022 [place] 10:33 AM [facility] LABORATORY % LYMPHOCYTES 9.0 % 07/22/2022 [place] 10:33 AM [facility] LABORATORY % MONOCYTES 2.0 % 07/22/2022 [place] 10:33 AM [facility] LABORATORY % EOSINOPHILS 6.0 % 07/22/2022 [facility] AM [facility] LABORATORY % BASOPHILS 0.0 % 07/22/2022 [facility] 10[facility]33 AM [facility] LABORATORY NEUTROPHILS 11.0 (H) 1.7 - 7.0 07/22/2022 [facility] thou/cu 10:33 AM [facility] mm LABORATORY LYMPHOCYTES 1.2 0.9 - 2.9 07/22/2022 [place] ABSOLUTE thou/cu 10:33 AM [facility] mm LABORATORY MONOCYTES 0.3 <0.9 07/22/2022 [facility] thou/cu 10:33 AM [facility] mm LABORATORY EOSINOPHILS 0.8 (H) <0.5 07/22/2022 [place] ABSOLUTE thou/cu 10:33 AM [facility] mm LABORATORY BASOPHILS 0.0 <0.3 07/22/2022 [place] ABSOLUTE thou/cu 10:33 AM [facility] mm LABORATORY Specimen Anatomical Collection Method / Collection Time Recei taylor Time (Source) Location / Volume Laterality Blood BLOOD SPECIMEN / Venipuncture / 07/22/2022 10:10 07/22 Unknown Unknown AM [employer]WRITER RIBBON WINDER 10:10 AM [employer]WRITER RIBBON WINDER Narrative [facility] LABORATORY - 10:33 AM [employer]WRITER RIBBON WINDER Twice weekly ([facility] on Mondays and in [place] on or Fridays This procedure was originally ordered at [facility]. This procedure was originally ordered at [facility]. This procedure was originally ordered at [facility]. Dalia HILL HEMATOLOGY Performing Organization Address City/State/ZIP Code Phon e Number [facility] LABORATORY [address] [place] [address] SCAN CORRESP-IMAGING (07/20/2022 12:00 AM TYPEWRITER RIBBON WINDER)Only the most recent of4 results within the time period is included. Narrative 07/20/2022 12:00 AM [employer]WRITER RIBBON WINDER This result has an attachment that is no t available. Ordered by an unspecified provider. Other Clinical Staff OTHER (ABNORMAL) BILIRUBIN,TOTAL/DIRECT (07/19/2022 8:24 AM TYPEWRITER RIBBON WINDER)Only the most recent of4 resultswithin the time period is included. athologist Signature BILIRUBIN,TOTA 1.9 (H) 0.2 - 1.2 07/19/2022 [facility] L mg/dL 9:52 AM [employer]WR[employer]IBBON W[employer]ER LABORATORY-[facility] TRAL LABORATORY BILIRUBIN,DIRE 0.8 (H) 0.1 - 0.5 07/19/2022 [facility] CT mg/dL 9:52 AM [employer]WR[employer] W[employer]ER LABORATORY-[facility] LABORATORY BILIRUBIN,MIGUEL 1.1 (H) 0.2 - 0.8 07/19/2022 [facility] RECT mg/dL 9:52 AM [employer]WR[employer] W[employer]ER LABORATORY-[facility] TRAL LABORATORY Specimen Anatomical Collection Method / Collection Time Recei taylor Time (Source) Location / Volume Laterality Blood BLOOD SPECIMEN / Non-Lab 07/19/2022 8:24 07/19/20 22 9:06 Unknown Venipuncture / AM [employer]WRITER [employer]IBBON WINDER AM [employer]WRITER RIBBON WINDER Unknown Kimberly Vidal MD CHEMISTRY Performing Organization Address City/[facility] Phon e Number [facility] [address] [place] [address] LABORATORY-CENTRAL 1999 LABORATORY PLATELET COUNT (07/19/2022 8:23 AM TYPEWRITER RIBBON WINDER)Only the most recent of7 resultswithin the time period is included. P athologist Signature PLATELET COUNT 254 140 - 440 07/19/2022 [facility] thou/cu mm 9:57 AM TYPEWRITER RIBBON WINDER LABORATORY-CENT RAL LABORATORY MPV 10.3 6.5 - 11.0 07/19/2022 [facility] fL 9:57 AM [employer]WRITER [employer] WINDER LABORATORY-CENT RAL LABORATORY Specimen Anatomical Collection Method / Collection Time Recei taylor Time (Source) Location / Volume Laterality Blood BLOOD SPECIMEN / Non-Lab 07/19/2022 8:23 07/19/20 22 9:06 Unknown Venipuncture / AM [employer]WRITER RIBBON WINDER AM TYPEWRITER RIBBON WINDER Unknown Narrative [facility] LABORATORY-CENTRAL LABORAT ORY - 07/19/2022 9:57 AM [employer]WRITER RIBBON WINDER Every morning while on IV heparin. Every morning while on IV heparin. Necessary every morning while on IV hepa rin. Daniel Graham MD HEMATOLOGY Performing Organization Address City/[facility] Phon e Number [facility] [address] [place] [address] [place] [address] LABORATORY-CENTRAL 1999 LABORATORY (ABNORMAL) HEMOGLOBIN (07/19/2022 8:23 AM TYPEWRITER RIBBON WINDER)Only the most recent of8 results within the time period is included. P athologist Signature HEMOGLOBIN 7.7 (L) 13.5 - 07/19/2022 [facility] 17.5 g/dL 9:57 AM TYPEWRITER RIBBON WINDER LABORATORY-[facility] LABORATORY MCV 111 (H) 80 - 100 07/19/2022 [facility] fL 9:57 AM TYPEWRITER RIBBON WINDER LABORATORY-[facility] LABORATORY Specimen Anatomical Collection Method / Collection Time Recei taylor Time (Source) Location / Volume Laterality Blood BLOOD SPECIMEN / Non-Lab 07/19/2022 8:23 07/19/20 22 9:06 Unknown Venipuncture / AM TYPEWRITER RIBBON WINDER AM TYPEWRITER RIBBON WINDER Unknown Narrative [facility] LABORATORY-CENTRAL [facility] - 07/19/2022 9:57 AM TYPEWRITER RIBBON WINDER Every morning while on IV heparin. Every morning while on IV heparin. Necessary every morning while on IV hepa rin. Daniel Graham MD HEMATOLOGY Performing Organization Address [facility] Phon e Number [facility] [address] [place] [address] [place] [address] LABORATORY-CENTRAL 2000 LABORATORY (ABNORMAL) HEMATOCRIT (07/19/2022 8:23 AM TYPEWRITER RIBBON WINDER)Only the most recent of7 results within the time period is included. athologist Signature HEMATOCRIT 23.6 (L) 37.0 - 07/19/2022 [facility] 53.0 % 9:57 AM [employer]WRITER RIBBON WINDER LABORATORY-[facility] LABORATORY Specimen Anatomical Collection Method / Collection Time Recei taylor Time (Source) Location / Volume Laterality Blood BLOOD SPECIMEN / Non-Lab 07/19/2022 8:23 07/19/20 22 9:06 Unknown Venipuncture / AM TYPEWRITER RIBBON WINDER AM TYPEWRITER RIBBON WINDER Unknown Narrative [facility] LABORATORY-CENTRAL [facility] - 07/19/2022 9:57 AM TYPEWRITER RIBBON WINDER Every morning while on IV heparin. Every morning while on IV heparin. Necessary every morning while on IV hepa rin. Daniel Graham MD HEMATOLOGY Performing Organization Address City/[facility]/ZIP [facility] Phon e Number [facility] [address] [place], [place] [address] [address] LABORATORY-CENTRAL 2000 LABORATORY HBSAG (HBS) (07/18/2022 12:08 PM TYPEWRITER RIBBON WINDER)Only the most recent of2 resultswithin the time period is included. [facility] gist Method Time Signature HBSAG Nonreactive Nonreactive 07/18/2022 [facility] 3:00 PM [employer]WRITER RIBBON WINDER LABORATORY-[facility] LABORATORY Specimen Anatomical Collection Method / Collection Time Recei taylor Time (Source) Location / Volume Laterality Blood BLOOD SPECIMEN / Venipuncture / 07/18/2022 12:08 07/18 Unknown Unknown PM TYPEWRITER RIBBON WINDER 12:35 PM TYPEWRITER RIBBON WINDER Kimberly Vidal MD SEND OUTS Performing Organization Address [facility] e Number [facility] [address] [place] [phone] LABORATORY-CENTRAL 2000 LABORATORY ANTI HBC (07/18/2022 12:08 PM TYPEWRITER RIBBON WINDER)Only the most recent of2 resultswithin the time period is included. athologist Signature ANTI HBC Non-Reacti Non-Reacti 07/18/2022 [facility] ve ve 2:59 PM TYPEWRITER RIBBON WINDER LABORATORY-CENT RAL LABORATORY Specimen Anatomical Collection Method / Collection Time Recei taylor Time (Source) Location / Volume Laterality Blood BLOOD SPECIMEN / Venipuncture / 07/18/2022 12:08 07/18 Unknown Unknown PM TYPEWRITER RIBBON WINDER 12:35 PM TYPEWRITER RIBBON WINDER Narrative [facility] LABORATORY-CENTRAL [facility] - 07/18/2022 2:59 PM TYPEWRITER RIBBON WINDER Anti-HBc Antibodies not detected. Does n ot exclude the possibility of exposure to or infection with HBV. Levels of Anti-HBc m ay be below the cut-off in early infection. Kimberly Vidal MD SEND OUTS Performing Organization Address [facility] e Number [facility] [address] [place] [address] LABORATORY-CENTRAL 2000 LABORATORY APTT (07/17/2022 10:26 AM TYPEWRITER RIBBON WINDER)Only the most recent of12 resultswithin the time period is included. athologist Signature APTT 28 24 - 33 sec 07/17/2022 [facility] 10:51 AM TYPEWRITER RIBBON WINDER LABORATORY-CENTR AL LABORATORY Specimen Anatomical Collection Method / Collection Time Recei taylor Time (Source) Location / Volume Laterality Blood BLOOD SPECIMEN / Venipuncture / 07/17/2022 10:26 07/17 Unknown Unknown AM TYPEWRITER RIBBON WINDER 10:33 AM TYPEWRITER RIBBON WINDER Narrative [facility] LABORATORY-CENTRAL LABORAT OR - 07/17/2022 10:51 AM TYPEWRITER RIBBON WINDER Therapeutic Range: 70-95 seconds Guy Nayak MD HEMATOLOGY Performing Organization Address City/State/ZIP Code Phon e Number [facility] [address] [place] [address] LABORATORY-CENTRAL 2000 LABORATORY [facility] PANEL (07/14/2022 4:55 AM TYPEWRITER RIBBON WINDER) Component Value Ref Test Analysis Performed At [facility] gist Range Method Time Signature Case Report Flow Cytometry ?Case: [id number] ? 07/18/2022 [facility] Authorizing Provider: ??Rafal Banuelos, Collected: ? 07/14/2022 0455 ? 9:09 AM HEALTH ? DO ? TYPEWRITER R[employer]BON WINDER LABORATORY-C Ordering Location: ? [facility] ?Received: ?07/14/2022 0507 ? EN TRAL ? Hospital ? LABORATORY Pathologist: ? Wandy Payne ? MD Jez ? Specimen: ?Blood ? Results Paroxysmal Nocturnal Hemoglobinuria (PNH) panel: 07/18/2022 [facility] 9:09 [facility] Interpretation TYPEWRITER RIBBON WINDER LABORATORY-C Negative for immunophenotypi c abnormalities associated with paroxysmal nocturnal hemoglobinuria (PNH). A negative result means no deficiency of the GPI-associated markers, CD157, FLAER or CD59. ENTRAL LABORATORY Clinical indication: Test fo r phenotypic abnormalities associated with paroxysmal nocturnal hemoglobinuria. Data quality variables ?Patient Granulocytes (SS/CD15+): ? 44% Monocytes (SS/CD64+): ?1% PNH-associated variables ? Result ?Reference WBC - Granulocyte CD157/FLAER deficiency: ?? <0.02% ? <0.01% WBC - Monocyte CD157/FLAER deficiency: ?<0.02% ? <0.01% RBC - CD59 deficiency (Type III): ? <0.01% ? <0.01% Assay lower limit of detection: WBC - Granulocyte CD157/FLAER deficiency: ??0.02% RBC - Type III (complete CD59 deficiency): 0.01% ?? Methodology: EDTA peripheral blood granulocytes and monocytes are gated using CD45, CD15 and CD64. WBC GPI-linked antibodies, CD157 and FLAER, are used to identify the PNH clone. Erythrocytes are gated using MW027a. The GPI-linked antibody CD59 is employed to identify the RBC PNH clone. These results and cytograms have been verified by Dr. Linda brooks. This test was developed and its performance characteristics verified by [facility]. It has not been cleared or approved by the US Food and Drug Administration. This test is used for clinic al purposes and should not be regarded as investigational or for research. Analytic Flow Tech: Almita Mobley, 07/15/2022 4:46 PM Verifying Flow Tech: Roxana Venegas, 07/18/2022 8:38 AM Additional 07/18/2022 [facility] Information Interpreted at [facility] al Laboratory - [address] [place] [id number] 9:09 AM HEALTH TYPEWRITER RIBBON WINDER LABORATORY-C ENTRAL LABORATORY Specimen Anatomical Collection Method / Collection Time Recei taylor Time (Source) Location / Volume Laterality Blood BLOOD SPECIMEN / Venipuncture / 07/14/2022 4:55 2021 5:07 Unknown Unknown AM TYPEWRITER RIBBON WINDER AM TYPEWRITER RIBBON WINDER Rafal Atkinson DO LABORATORY Performing Organization Address City/State/ZIP Code Phon e Number [employer] [address] [place] [address] LABORATORY-CENTRAL 2000 LABORATORY PERIPHERAL BLD MORPHOLOGY (07/14/2022 4:55 AM TYPEWRITER RIBBON WINDER) Component Value Ref Test Analysis Performed At [facility] Range Method Time Signature Case Report Special Hematology Report ? Case: [id number] ? 07/15/2022 [facility] Authorizing Provider: ??Dalia Nuñez PA ??Collected: ? 07/14/2022 0455 ? 3:24 PM HEALTH Ordering Location: ? [facility] ?Received: ?07/14/2022 1009 ? [employer]WR[employer] WINDER [facility] ? ENTRAL Pathologist: ? Cynthia De Leon MD ? LABORATORY Specimen: ?Blood ? Final Diagnosis PERIPHERAL BLOOD: 07/15/2022 [facility] A Electronically 1. Moderate anemia with dimitri ed reticulocytosis (>30%) and increased spherocytes, consistent with immune-mediated hemolytic anemia 3:24 PM HEALTH signed by 2. See comment [facility] LABORATORY-C Cynthia Orona MD on LABORATORY 2 at 3:24 PM Comment The constellation of finding s (anemia, marked reticulocytosis, numerous spherocytes, positive LAURA, haptoglobin/LD results) would support an interpretation of immune-mediated hemolysis. ??The MCV is like 07/15/2022 [facility] ly elevated secondary to the increased reticulocyte count. ??Clinical correlation recommended. 3:24 PM HEALTH [facility] LABORATORY-C Dr. De Leon relayed the results of this case to Dr. Vidal on 07/15/2022. ENTRAL LABORATORY Clinical The patient is a 67-year-old male. 07/15 [facility] Information Pertinent clinical informati on: Reticulocytosis. ??Please evaluate for MAHA. 3:24 PM HEALTH [facility] LABORATORY-C Per [facility] 07/12/2022-present: He has a history of recent COVID-19 (positive test 06/15), bilateral dvt (new finding) who presents with shortness of breath, weakness. Admitted to [facility] 07/10 ENTRAL for symptoms of weakness, s ob, and jaundice. Had recent COVID-19 and at the same time a new diagnosis of bilateral DVT's on 06/15. 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 LABORATORY PNH panel is pending. 07/13/2022 06:03 HAPTOGLOBIN ?: <8 (L) LD,TOTAL: ?1,566 (H) LAURA ANTI-C3 ?: Negative [facility] ANTI-IGG: ?Positive (A) LAURA POLYSPECIFIC AHG: ?Positive (A) CBC and HEMATOLOGY PARAMETERS 07/15/2022 [facility] Differential Tested at: ??[facility] Laboratory-Central Laboratory 3:24 PM HEALTH ? RESULTS ??EXPECTED VALUES C LABORATORY-C WBC: ? 6.8 ?4.5-35x1345/cumm ? ENTRAL RBC: ? 2.0 ?4.30-5.90 mil/cummDECREASED LABORATORY HGB: ? 7.6 ?13.5-17.5 gm/di ? DECREASED HCT: ? 22.8 ? 37-53% ?DECREASED MCV: ? 112.0 ?80-100 fl ? MACROCYTIC MCH: ? 37.0 ? 26-34 pg ?ELEVATED MCHC: ?32.6 ? 32-36 gm/dl ? NORMOCHROMIC RDW: ? 25.0 ? 11.5-15.5% ?ELEVATED PLT: ? 126 ?140-209r5942/uL ? DECREASED MPV: ? 10.4 ? 6.5-11 fl ? Retic: ?? 30 ? 0.5-1.5% ?ELEVATED Differential ?Absolute (%) ?Expected (%) ?(x10*9/L) ? (x10*9/L) Neutrophils: ?4.7 (68.7) ?1.7-7.0 (42-72%) ? Lymphocytes: ?1.6 (23.4) ?0.9-2.9 (20-44%) ?? Monocytes: ?0.5 (7.3) ?<0.9 (0-11%) ? Eosinophils: ?0.1 (1.5) ?<0.5 (0-2%) Microscopic The final 07/15/2022 [facility] Description diagnosis is 3:24 PM HEALTH based on TYPEWR[employer] WINDER LABORATORY-C microscopic ENTRAL examination of an LABORATORY appropriately stained blood smear. Additional 07/15/2022 [facility] Information Interpreted at [facility], Central Laboratory - [address] [facility] [address], [place] [address] 3:24 PM HEALTH TYPEWRITER [employer]BON WINDER LABORATORY-C ENTRAL LABORATORY Specimen Anatomical Collection Method / Collection Time Recei taylor Time (Source) Location / Volume Laterality Blood BLOOD SPECIMEN / Venipuncture / 07/14/2022 4:55 2021 Unknown Unknown AM TYPEWRITER RIBBON WINDER 10:09 AM TYPEWRITER RIBBON WINDER Comment: CURRENT MEDICATIONSCurrent Faci lity-Administered Medications: ? ? acetaminophen 650 mg tablet (TYLENOL), 650 mg, Oral, q4h prn, Daniel Graham MD? ? calcium carbonate 500-1,000 mg tablet ( TUMS), 500-1,000 mg, Oral, q4h prn, Daniel Graham MD? ? heparin IV THERAPEUTIC protocol, , Prot ocol, protocol AND heparin (porcine) 25,000 unit/250 mL(100 unit/mL) D5W infu favian, 1,230 Units/hr, Intravenous, continuous, Aldair, Pratik, RN, Last Rate: 1,230 Units/hr (07/13/22 0800)? ? melatonin tablet 3 mg, 3 mg, Oral, bedt barbra prn MRx1, Daniel Graham MD? ? naloxone (NARCAN) 0.4 mg/mL injection v ial 0.08 mg, 0.08 mg, Intravenous, q1min prn, Daniel Graham MD? ? nicotine (NICORETTE) 2 mg gum 2 mg, 2 m g, Oral, q1h prn, Daniel Graham MD? ? ondansetron 4 mg orally disintegrating tablet (ZOFRAN ODT), 4 mg, On The Tongue, q8h prn OR ondansetron 4 mg injection (Z OFRAN), 4 mg, Intravenous, q8h prn, Daniel Graham MD? ? oral anesthetic lozenge 1 Lozenge, 1 Lo zenge, On The Tongue, q2h prn, Daniel Graham MD? ? oxyCODONE 2.5 mg as half tablet (ROXICO DONE), 2.5 mg, Oral, q4h prn OR oxyCODONE (ROXICODONE) immediate release tablet 5 mg, 5 mg, Oral, q4h prn, Daniel Graham MD? ? polyethylene glycol 17 g packet (MIRALA X; GLYCOLAX), 17 g, Oral/NG Tube, daily prn, Daniel Graham MD? ? predniSONE 70 mg (DELTASONE) Multi Di spense, 70 mg, Oral, daily wm morning, Daniel Graham MD? ? sennosides 8.6-17.2 mg (SENNA), 8.6-17. 2 mg, Oral, bid prn, Daniel Graham MD? ? sodium chloride 0.9 % syringe 10 mL, 10 mL, Intravenous, Each Time PRN, Daniel Graham MD? ? sodium chloride 0.9 % syringe 5 mL, 5 m L, Intravenous, q12h, Daniel Graham MD? ? sodium chloride 0.9 % syringe 5 mL, 5 m L, Intravenous, Each Time PRN, Daniel Graham MD Dalia HILL HEMATOLOGY Performing Organization Address City/State/ZIP [facility] Phon e Number [facility] [address] [place] [address] [place] [address] LABORATORY-CENTRAL 2000 LABORATORY (ABNORMAL) LAURA-ANTI IGG LAB USE ONLY (07/13/2022 2:27 PM [employer]WR[employer] WINDER) [facility] Method Time Signature LAURA ANTI-IGG Positive (A) Negative 07/13/2022 [facility] 3:45 PM [employer] W[employer] LAB-CENTRAL LAB BLOOD BANK Specimen Anatomical Collection Method / Collection Time Recei taylor Time (Source) Location / Volume Laterality Blood BLOOD SPECIMEN / Venipuncture / 07/13/2022 2:27 2021 2:33 Unknown Unknown PM [employer]WRITER RIBBON WINDER PM [employer]WRITER [employer] WINDER Dalia HILL BLOOD BANK Performing Organization Address City/State/ZIP Code Phon e Number [facility] LAB-CENTRAL LAB [address] [place] [phone] BLOOD BANK LAURA ANTI-C3 (07/13/2022 2:27 PM TYPEWRITER RIBBON WINDER) P athologist Signature LAURA ANTI-C3 Negative Negative 07/13/2022 [facility] 4:12 PM [employer]WR[employer] W[employer] LAB-CENTRAL LAB BLOOD BANK Specimen Anatomical Collection Method / Collection Time Recei taylor Time (Source) Location / Volume Laterality Blood BLOOD SPECIMEN / Venipuncture / 07/13/2022 2:27 2021 2:33 Unknown Unknown PM TYPEWRITER RIBBON WINDER PM [employer]WRITER [employer] WINDER Dalia HILL BLOOD BANK Performing Organization Address City/[facility]/ZIP Code Phon e Number [facility] LAB-CENTRAL LAB [address] [place] [phone] BLOOD BANK (ABNORMAL) DIRECT ANTIGLOBULIN TEST (07/13/2022 2:27 PM TYPEWRITER RIBBON WINDER) [facility] Time Signature LAURA POLYSPECIFIC Positive (A) Negative 07/13/2022 [facility] G 3:27 PM [employer]WR[employer] WINDER HEALTH LAB-CENTRAL LAB BLOOD BANK Specimen Anatomical Collection Method / Collection Time Recei taylor Time (Source) Location / Volume Laterality Blood BLOOD SPECIMEN / Venipuncture / 07/13/2022 2:27 2021 2:33 Unknown Unknown PM TYPEWRITER RIBBON WINDER PM [employer]WRITER R[employer]BON WINDER Dalia HILL BLOOD BANK Performing Organization Address [facility]/ZIP Code Phon e Number [facility] LAB [address] [place] [phone] BLOOD BANK (ABNORMAL) ELUTION ANTIBODY ID (07/13/2022 2:27 PM TYPEWRITER RIBBON WINDER) [facility] Signature ELUTION Reacts with 07/13/2022 [facility] ANTIBODY ID all cell 9:55 PM [employer]WRITER [employer]BON WINDER LAB-CENTRAL (A) LAB BLOOD BANK Specimen Anatomical Collection Method / Collection Time Recei taylor Time (Source) Location / Volume Laterality Blood BLOOD SPECIMEN / Venipuncture / 07/13/2022 2:27 2021 2:33 Unknown Unknown PM [employer]WRITER [employer]IBBON WINDER PM [employer]WR[employer] Dalia HILL BLOOD BANK Performing Organization Address City/[facility]/ZIP Code Phon e Number [facility] LAB [address] [place] [phone] BLOOD BANK (ABNORMAL) ANTIBODY IDENTIFICATION LAB USE ONLY (07/13/2022 2:27 PM TYPEWRITER [employer]IBBON WINDER) [facility] Signature ANTIBODY Warm auto 07/13/2022 [facility] IDENTIFICATION jan (A) 10:10 PM [employer]WR[employer] W[employer]ER LAB-CENTRAL LAB BLOOD BANK Specimen Anatomical Collection Method / Collection Time Recei taylor Time (Source) Location / Volume Laterality Blood BLOOD SPECIMEN / Venipuncture / 07/13/2022 2:27 2021 2:33 Unknown Unknown PM [employer]WR[employer] WINDER PM [employer]WRITER [employer] WINDER Narrative [facility] LAB-CENTRAL LAB BLOOD BANK - 07/13/2022 10:10 PM [employer]WRITER [employer]BON WINDER Blood products may be delayed. Draw patient 24 hours prior to transfusion. Draw one red top and two purple top tubes for all Type and Screen orders. This patient's serological work-up may h ave included protocols and/or reagents that have not been cleared or approved by the U.S. Food and Drug Administration. If specific information is required, please contact the performing laboratory Dalia HILL BLOOD BANK Performing Organization Address City/[facility]/ZIP Code Phon e Number [facility] LAB-CENTRAL LAB [address] [place] [phone] BLOOD BANK ELUTION PANEL ADDITIONAL (07/13/2022 2:27 PM TYPEWRITER [employer]IBBON WINDER) [facility] Distra Method Time Signature QUANTITY 1 [facility] LAB-CENTRAL LAB BLOOD BANK ELUTION PANEL Elution [facility] Panel for LAB-CENTRAL Jan ID LAB BLOOD BANK Specimen (Source) Anatomical Location Collection Method / Collectio n Time Received Time / Laterality Volume Dalia HILL BLOOD BANK Performing Organization Address City/[facility]/ZIP Code Phon e Number [facility] LAB-CENTRAL LAB [address] [place] [phone] BLOOD BANK ELUTION SELECT CELLS (07/13/2022 2:27 PM TYPEWRITER RIBBON WINDER) [facility] Distra Method Time Signature QUANTITY 1 [facility] LAB-CENTRAL LAB BLOOD BANK ELUTION SELECT Elution [facility] CELLS Select Cells LAB-CENTRAL LAB BLOOD BANK Specimen (Source) Anatomical Location Collection Method / Collectio n Time Received Time / Laterality Volume Dalia HILL BLOOD BANK Performing Organization Address City/[facility]/ZIP Code Phon e Number [facility] [address] [place] [address] [phone] BLOOD BANK ELUTION ACID ELU II (07/13/2022 2:27 PM TYPEWRITER [employer]IBBON WINDER) [facility] Distra Method Time Signature QUANTITY 1 [facility] BLOOD BANK ELUTION ACID Elution Acid [facility] ELU II ELU II LAB-CENTRAL LAB BLOOD BANK Specimen (Source) Anatomical Location Collection Method / Collectio n Time Received Time / Laterality Volume Dalia HILL BLOOD BANK Performing Organization Address City/[facility]/ZIP Code Phon e Number [facility] [address] [place], [place] [address] BLOOD BANK FIBRINOGEN,QUANTITATIVE (07/13/2022 1:20 PM TYPEWRITER [employer]) athologist Signature FIBRINOGEN,MERLYN 362 240 - 410 07/13/2022 [facility] NTITATIVE mg/dL 1:54 PM [employer]WR[employer] LABORATORY-CENT RAL LABORATORY Specimen Anatomical Collection Method / Collection Time Recei taylor Time (Source) Location / Volume Laterality Blood BLOOD SPECIMEN / Venipuncture / 07/13/2022 1:20 2021 1:25 Unknown Unknown PM [employer]WR[employer] PM TYPEWRITER [employer] Dalia HILL HEMATOLOGY Performing Organization Address City/[facility]/ZIP Code Phon e Number [facility] [employer] [address] [place] [address] LABORATORY-CENTRAL 2000 LABORATORY CWS PATH REVIEW HEMATOLOGY (07/13/2022 6:03 AM TYPEWRITER [employer]ON W[employer]) [facility] Method Ashley Signature PATH COMMENT Reviewed by 07/16/2022 [facility] KK on 1:56 PM [employer]WR[employer] LABORATORY-LAURA 07/15/2022 TRAL LABORATORY Specimen Anatomical Collection Method / Collection Time Recei taylor Time (Source) Location / Volume Laterality Blood BLOOD SPECIMEN / Non-Lab 07/13/2022 6:03 07/13/20 22 6:30 Unknown Venipuncture / AM [employer]WRITER [employer] W[employer]ER AM TYPEWRITER [employer]ER Unknown Daniel Graham MD LABORATORY Performing Organization Address City/State/ZIP Code Phon e Number [facility] [address] [place] [address] LABORATORY-CENTRAL 1999 LABORATORY (ABNORMAL) CBC no diff AM (07/13/2022 6:03 AM TYPEWRITER [employer]) [facility] Method Ashley Signature WHITE BLOOD 7.7 4.5 - 11.0 07/13/2022 [facility] thou/cu mm 7:46 AM [employer]WR[employer] LABORATORY-[facility]A TRAL LABORATORY RED BLOOD COUNT 2.08 (L) 4.30 - 07/13/2022 [facility] 5.90 7:46 AM [employer]WR[employer] LABORATORY-[facility]UR[facility] mil/cu mm TRAL LABORATORY HEMOGLOBIN 7.6 (L) 13.5 - 07/13/2022 [facility] 17.5 g/dL 7:46 AM [employer]WR[employer] LABORATORY-[facility]UR[facility] TRAL LABORATORY HEMATOCRIT 24.1 (L) 37.0 - 07/13/2022 [facility] 53.0 % 7:46 AM [employer]WR[employer] LABORATORY-[facility] TRAL LABORATORY MCV 116 (H) 80 - 100 07/13/2022 [facility] fL 7:46 AM [employer]WR[employer] LABORATORY-[facility]UR[facility] TRAL LABORATORY MCH 36.5 (H) 26.0 - 07/13/2022 [facility] 34.0 pg 7:46 AM [employer]WR[employer] LABORATORY-[facility] TRAL LABORATORY MCHC 31.5 (L) 32.0 - 07/13/2022 [facility] 36.0 g/dL 7:46 AM [employer]WR[employer] LABORATORY-[facility] TRAL LABORATORY RDW 26.2 (H) 11.5 - 07/13/2022 [facility] 15.5 % 7:46 AM [employer]WR[employer] LABORATORY-[facility] TRAL LABORATORY PLATELET COUNT 145 140 - 440 07/13/2022 [facility] thou/cu mm 7:46 AM [employer]WR[employer] LABORATORY-[facility] TRAL LABORATORY MPV 10.3 6.5 - 11.0 07/13/2022 [facility] fL 7:46 AM [employer]WR[employer] LABORATORY-[facility] TRAL LABORATORY NRBC 2.7 % 07/13/2022 [facility] 7:46 AM [employer]WR[employer] LABORATORY-[facility] TRAL LABORATORY ABS NRBC 0.2 thou /cu 07/13/2022 [facility] mm 7:46 AM [employer]WRITER [employer] LABORATORY-[facility] TRAL LABORATORY Specimen Anatomical Collection Method / Collection Time Recei taylor Time (Source) Location / Volume Laterality Blood BLOOD SPECIMEN / Non-Lab 07/13/2022 6:03 07/13/20 22 6:30 Unknown Venipuncture / AM TYPEWRITER [employer]ER AM TYPEWRITER [employer]ER Unknown Daniel Graham MD HEMATOLOGY Performing Organization Address City/State/ZIP Code Phon e Number [facility] [address] [place] [address] LABORATORY-CENTRAL 2000 LABORATORY (ABNORMAL) Bilirubin, total AM (07/13/2022 6:03 AM TYPEWRITER [employer]ER) P athologist Signature BILIRUBIN,TOTA 2.3 (H) 0.2 - 1.2 07/13/2022 [facility] L mg/dL 6:54 AM [employer]WRITER [employer] LABORATORY-[facility]UR[facility] TRAL LABORATORY Specimen Anatomical Collection Method / Collection Time Recei taylor Time (Source) Location / Volume Laterality Blood BLOOD SPECIMEN / Non-Lab 07/13/2022 6:03 07/13/20 6:30 Unknown Venipuncture / AM TYPEWRITER [employer]ER AM TYPEWRITER [employer]ER Unknown Daniel Graham MD CHEMISTRY Performing Organization Address City/[facility] Code Phon e Number [facility] [address] [facility] [place] [address] LABORATORY-CENTRAL 2000 LABORATORY PROTIME-INR (07/13/2022 6:03 AM TYPEWRITER [employer] WINDER)Only the most recent of2 resultswithin the time period is included. athologist Signature INR 1.1 <1.3 07/13/2022 [facility] 11:48 AM TYPEWRITER [employer] LABORATORY-CENTR AL LABORATORY PROTIME 13.4 12.0 - 13.8 07/13/2022 [facility] sec 11:48 AM [employer]WRITER [employer] LABORATORY-CENTR AL LABORATORY Specimen Anatomical Collection Method / Collection Time Recei taylor Time (Source) Location / Volume Laterality Blood BLOOD SPECIMEN / Non-Lab 07/13/2022 6:03 07/13/20 6:30 Unknown Venipuncture / AM TYPEWRITER [employer]ER AM TYPEWRITER [employer]ER Unknown Narrative [facility] LABORATORY-CENTRAL LABORAT ORY - 07/13/2022 11:48 AM TYPEWRITER [employer]BON W[employer]ER ?Therapeutic Range 2.0-3.0 for most anticoagulated patients 2.5-3.5 or 4.0 for high risk patients The INR is only used for patients on sta ble oral anticoagulant therapy. It makes no significant contribution to the diagnosis or treatment of patients whose Protime is prolonged f or other reasons. INR results are increased when heparin l evels exceed 1.0 U/mL, which corresponds to an aPTT >125 seconds if the patient is on UFH. Dalia HILL HEMATOLOGY Performing Organization Address City/[facility]/ZIP Code Phon e Number [facility] [address] [facility] [place] [address] LABORATORY-CENTRAL 1999 LABORATORY DIFFERENTIAL (07/13/2022 6:03 AM TYPEWRITER [employer] W[employer]ER) P athologist Signature % NEUT 71.0 % 07/13/2022 [facility] 11:42 AM TYPEWRITER [employer] LABORATORY-[facility]UR[facility] TRAL LABORATORY % LYMPH 20.8 % 07/13/2022 [facility] 11:42 AM TYPEWRITER [employer]ER LABORATORY-LAURA TRAL LABORATORY % MONO 4.9 % 07/13/2022 [facility] 11:42 AM TYPEWRITER [employer]ER LABORATORY-[facility]URA TRAL LABORATORY % EOS 2.2 % 07/13/2022 [facility] 11:42 AM TYPEWRITER [employer]ER LABORATORY-[facility]URA TRAL LABORATORY % BASO 0.4 % 07/13/2022 [facility] 11:42 AM TYPEWRITER [employer]ER LABORATORY-[facility]UR[facility] TRAL LABORATORY % IMMATURE GRAN 0.7 % 07/13/2022 [facility] (METAS,MYELOS,DE 11:42 AM TYPEWRITER [employer]ER LABORATORY -[facility]URA OS) TRAL LABORATORY ABSOLUTE 5.2 1.7 - 7.0 07/13/2022 [facility] NEUTROPHILS thou/cu mm 11:42 AM [employer]WRITER [employer] LABORATORY-[facility]UR[facility] TRAL LABORATORY ABSOLUTE 1.5 0.9 - 2.9 07/13/2022 [facility] LYMPHOCYTES thou/cu mm 11:42 AM TYPEWRITER [employer]ER LABORATORY-[facility]UR[facility] TRAL LABORATORY ABSOLUTE 0.4 <0.9 07/13/2022 [facility] MONOCYTES thou/cu mm 11:42 AM TYPEWRITER [employer] LABORATORY-[facility]UR[facility] TRAL LABORATORY ABSOLUTE 0.2 <0.5 07/13/2022 [facility] EOSINOPHILS thou/cu mm 11:42 AM TYPEWRITER [employer] LABORATORY-[facility]UR[facility] TRAL LABORATORY ABSOLUTE 0.0 <0.3 07/13/2022 [facility] BASOPHILS thou/cu mm 11:42 AM [employer]WRITER [employer] LABORATORY-[facility] TRAL LABORATORY ABSOLUTE 0.1 <0.3 07/13/2022 [facility] IMMATURE thou/cu mm 11:42 AM TYPEWRITER [employer]ER LABORATORY-LAURA GRANULOCYTES(MET TRAL ,MYELOS,PROS) LABORATORY Specimen Anatomical Collection Method / Collection Time Recei taylor Time (Source) Location / Volume Laterality Blood BLOOD SPECIMEN / Non-Lab 07/13/2022 6:03 07/13/20 22 6:30 Unknown Venipuncture / AM TYPEWRITER [employer] W[employer]ER AM TYPEWRITER [employer]ER Unknown Narrative [facility] LABORATORY-CENTRAL LABORAT ORY - 07/13/2022 11:42 AM TYPEWRITER [employer] W[employer]ER WBC MUST ALSO BE ORDERED, [id number] Dalia HILL HEMATOLOGY Performing Organization Address City/State/ZIP Code Phon e Number [facility] [address] [place] [address] LABORATORY-CENTRAL 2000 LABORATORY SCAN CORRESP-LABORATORY RESULTS (07/13/2022 12:00 AM TYPEWRITER [employer]BON W[employer]ER) Narrative 07/13/2022 12:00 AM TYPEWRITER [employer] This result has an attachment that is no t available. Ordered by an unspecified provider. Other Clinical Staff OTHER BUN (07/12/2022 11:51 PM TYPEWRITER [employer]ER) athologist Signature BUN 24 8 - 25 07/13/2022 [facility] mg/dL 12:45 AM TYPEWRITER [employer]ER LABORATORY-CENTR AL LABORATORY Specimen Anatomical Collection Method / Collection Time Recei taylor Time (Source) Location / Volume Laterality Blood BLOOD SPECIMEN / Non-Lab 07/12/2022 11:51 022 Unknown Venipuncture / PM TYPEWRITER [employer]ER 12:02 AM TYPEWRITER [employer]ER Unknown Daniel Graham MD CHEMISTRY Performing Organization Address City/[facility]/ZIP [facility] Phon e Number [facility] [address] [place], [place] [id number] [address] LABORATORY-CENTRAL 2000 LABORATORY (ABNORMAL) CREATININE (07/12/2022 11:51 PM TYPEWRITER [employer]) athologist Signature CREATININE 1.03 0.72 - 1.25 07/13/2022 [facility] mg/dL 12:44 AM TYPEWRITER [employer] LABORATORY-CENT RAL LABORATORY eGFR 80 (L) >90 07/13/2022 [facility] mL/min/1.73 12:44 AM TYPEWRITER [employer]ER LABORATORY-CENT m2 RAL LABORATORY Comment: As of 2021, eGFR is calcu lated by the CKD-EPI creatinine equation without race adjustment. eGFR can be inf luenced by muscle mass, exercise, and diet. The reported eGFR is an estimation only and is only applicable if the renal function is stable. Specimen Anatomical Collection Method / Collection Time Recei taylor Time (Source) Location / Volume Laterality Blood BLOOD SPECIMEN / Non-Lab 07/12/2022 11:51 022 Unknown Venipuncture / PM TYPEWRITER [employer]ER 12:02 AM TYPEWRITER [employer] Unknown Daniel Graham MD CHEMISTRY Performing Organization Address City/State/ZIP Code Phon e Number [facility] [address] [place] [address] LABORATORY-CENTRAL 2000 LABORATORY from Last 3 Months Insurance Payer Benefit Plan / Subscriber ID Effective Phone Address T ype Group Dates WC WORKERS COMP WC WORKERS [id number]-Pre [phone] [address] COMP 1 sent [address] [place] [address] PREFERRED ONE PREFERRED ONE [id number] 2018-Prese [address] [place] [address] Advance Directives Latest Code Status on File Code Status Date Activated Date Inactivated Comments Full Code 07/12/2022 10:53 PM 07/19/2022 5:23 PM Code Status Discussion: Reviewed Preferences Care Teams 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
== END 2022-07-12 19:26 | disposition home or self-care (01) ==
LOC: AMB 07-27 07:33
PROVIDERS: PCP Family Medicine; Visit Provider Family Medicine
DX: R06.02 Shortness of breath (principal); R53.1 Weakness
CPT/HCPCS: A0425; A0426